=== PATIENT | female | born 1960 | race Caucasian/White ===

== ENCOUNTER 2019-10-05 09:47 | Outpatient (CLI) | payer OTHER, SELFPAY ==
--- NOTE | ~2019-10-05 | XR_ITS ---
EXAMINATION: XR knee LT min 4V DATE: 10/05/2019 10:10 INDICATION: Left knee pain. TECHNIQUE: 4 views of left knee were obtained. COMPARISON: None. FINDINGS: Bone alignment is normal. No fracture. There is mild tricompartmental osteoarthritis. There is a small knee joint effusion. IMPRESSION: 1. Mild left knee osteoarthritis. 2. Small left knee joint effusion. Reviewed, dictated and finalized at location A.
== END 2019-10-05 09:48 | disposition home or self-care (01) ==
PROVIDERS: PCP Internal Medicine; Visit Provider Internal Medicine
DX: M17.12 Unilateral primary osteoarthritis, left knee (principal); M25.462 Effusion, left knee
CPT/HCPCS: 73564

== ENCOUNTER 2019-10-15 09:36 | Outpatient (CLI) | payer OTHER, SELFPAY ==
--- NOTE | ~2019-10-15 | MM_ITS ---
EXAMINATION: MM screening beto BI w gianfranco HISTORY: Screening mammogram TECHNIQUE: Craniocaudal and mediolateral oblique 3-D tomosynthesis images were obtained and synthetic 2-D images were generated. CAD analysis was submitted and interpreted. COMPARISON: Comparison to multiple prior studies sequentially, with oldest reviewed study dated 10/29. BREAST PARENCHYMAL COMPOSITION: The breasts are almost entirely fatty. FINDINGS: There is no evidence of suspicious mass, calcification, or architectural distortion to sugg est malignancy in either breast. There has been no suspicious interval change. IMPRESSION: 1. No mammographic evidence of malignancy. 2. Recommend routine screening mammography in one year. BI-RADS Category 1: Negative Reviewed, dictated and finalized at location A.
== END 2019-10-15 09:37 | disposition home or self-care (01) ==
LOC: ANHIMG 09:40
PROVIDERS: PCP Internal Medicine; Visit Provider Obstetrics & Gynecology
DX: Z12.31 Encounter for screening mammogram for malignant neoplasm of breast (principal)
CPT/HCPCS: 77063; 77067

== ENCOUNTER 2022-12-06 11:49 | Outpatient (CLI) | payer BC, SELFPAY ==
--- NOTE | ~2022-12-06 | MM_ITS ---
EXAMINATION: MM screening beto BI w gianfranco HISTORY: Screening mammogram TECHNIQUE: Craniocaudal and mediolateral oblique 3-D tomosynthesis images were obtained and synthetic 2-D images were generated. CAD analysis was submitted and interpreted. COMPARISON: 10/15/2019, 03/26/2017 bilateral screening mammogram examinations BREAST PARENCHYMAL COMPOSITION: The breasts are almost entirely fatty. FINDINGS: There is no evidence of suspicious mass, calcification, or architectural distortion to sugg est malignancy in either breast. There has been no suspicious interval change. IMPRESSION: 1. No mammographic evidence of malignancy. 2. Recommend routine screening mammography in one year. BI-RADS Category 1: Negative Reviewed, dictated and finalized at location A.
== END 2022-12-06 11:50 | disposition home or self-care (01) ==
LOC: ANHIMG 11:52
PROVIDERS: PCP Internal Medicine; Visit Provider Obstetrics & Gynecology
DX: Z12.31 Encounter for screening mammogram for malignant neoplasm of breast (principal)
CPT/HCPCS: 77063; 77067

== ENCOUNTER 2023-02-11 10:29 | Outpatient (CLI) | payer BC, SELFPAY ==
--- NOTE | ~2023-02-11 | MR_ITS ---
MRI of the lumbar spine Clinical History: Back pain Technique: Axial T2-weighted images, and sagittal T1-weighted, T2-weighted, and T2 fat-sat images wer e acquired. Findings: No acute fracture seen. There is 3 mm retrolisthesis of L1 over L2. There is 2 mm retrolist hesis of L2 over L3. There are reactive marrow signal changes about the T12-L1 disc space due to unde rlying degenerative disc disease. At L1-L2, there is severe degenerative disc narrowing. There is minimal disc bulge with mild to moder ate facet arthropathy. No central canal stenosis. There is mild to moderate bilateral neural foramina l narrowing. At L2-L3, there is advanced degenerative disc narrowing. There is minimal disc bulge with moderate fa cet arthropathy. No central canal stenosis or definite neural foraminal narrowing. At L3-L4, there is diffuse disc bulge with moderate facet arthropathy. No dangelo central canal stenosi s. There is minimal bilateral neural foraminal narrowing. At L4-L5, there is diffuse disc bulge with severe facet arthropathy, resulting in severe spinal canal stenosis/thecal sac compression. There is moderate to severe right neural foraminal narrowing, and m ild left neural foraminal narrowing. At L5-S1, there is diffuse disc bulge with moderate facet arthropathy. There is probable mild central canal stenosis. There is advanced bilateral neural foraminal narrowing, left worse than right. Paravertebral soft tissues are unremarkable. Impression: Severe degenerative spondylosis at L4-L5, as detailed above. [id number] degenerative spondylosis involving the remainder of the lumbar spine. 3 mm retrolisthesis of L1 over L2. 2 mm retrolisthesis of L2 over L3. Reviewed, dictated and finalized at [facility]. Impression: Severe degenerative spondylosis at L4-L5, as detailed above. [id number] degenerative spondylosis involving the remainder of the lumbar spine. 3 mm retrolisthesis of L1 over L2. 2 mm retrolisthesis of L2 over L3.
--- NOTE | ~2023-02-11 | XR_ITS ---
EXAMINATION: XR thoracic spine 2V DATE: 02/11/2023 11:44 INDICATION: Back pain, thoracic spine. TECHNIQUE: 3 views of thoracic spine were obtained. COMPARISON: None. FINDINGS: There is 3 degrees dextrocurvature of thoracic spine. There is 3 mm retrolisthesis of T12 o n L1. There is mild chronic anterior wedging of T11 and T12 vertebral bodies. There is moderate to se verely decreased disc height at multiple levels in mid and lower thoracic spine. There are endplate o steophytes at most levels. IMPRESSION: 1. Severe thoracic spondylosis. Reviewed, dictated and finalized at location E.
== END 2023-02-11 10:30 ==
LOC: MICIMG 10:30
PROVIDERS: PCP Internal Medicine; Visit Provider Nurse Practitioner Family
DX: M43.04 Spondylolysis, thoracic region (principal); M43.06 Spondylolysis, lumbar region; M51.36 Other intervertebral disc degeneration, lumbar region; M54.59 Other low back pain
CPT/HCPCS: 72070; 72148

== ENCOUNTER 2024-08-01 10:44 | Outpatient (CLI) | payer MEDICARE, SELFPAY ==
--- NOTE | ~2024-08-01 | MR_ITS ---
MRI of the right shoulder Technique: Axial proton-density fat-sat images, coronal proton density fat-sat and T2 fat-sat images, and sagittal T1-weighted and T2 fat-sat images were acquired. Clinical History: Pain Findings: There is mild to moderate AC joint degenerative change. Coracoclavicular, coracoacromial, a nd coracohumeral ligaments appear intact. There is severe supraspinatus and infraspinatus tendinosis. Probable focal full-thickness tearing at the anterior, distal supraspinatus tendon insertion with tear measuring approximately 1.2 x 1.2 cm in extent. Subscapularis tendon is intact with mild tendinosis. Tendon of long head of the biceps is in tact. No definite labral tear identified. There is inferior glenohumeral head osteophyte with moderate chondromalacia of the superior humeral h ead. Inferior glenohumeral ligament is intact. There is glenohumeral joint effusion with fluid passin g through the rotator cuff defect into the subacromial/subdeltoid bursa. There is additional fluid di stention of the biceps tendon sheath. There is cystic enthesopathic change at the greater tuberosity of the humerus. No muscle atrophy or edema evident. Impression: 1.2 x 1.2 cm area of full-thickness tear at the anterior, distal supraspinatus tendon insertion. Back ground moderate to severe rotator cuff tendinosis. Moderate glenohumeral joint degenerative change and mild to moderate AC joint degenerative change. Reviewed, dictated and finalized at [facility]. Impression: 1.2 x 1.2 cm area of full-thickness tear at the anterior, distal supraspinatus tendon insertion. Background moderate to severe rotator cuff tendinosis. Moderate glenohumeral joint degenerative change and mild to moderate AC joint d egenerative change.
--- OUTSIDE RECORDS SUMMARY | 2024-08-01 12:07 | XMS_ITS | CONTINUITY OF CARE DOCUMENT ---
Author Name [email or web address] Address Unknown Organization [facility] Address [address] [place] [address] Phone [phone] Care Team Providers Care Hearing Instrument Specialist Name Role Phone Agusto SWENSON, Lanette Unavailable Lanette Liz MD Unavailable Albin Suero MD Unavailable INSURANCE PROVIDERS Payer name Policy type / Coverage type [employer] party ID [facility] [id number] Other [id number]
--- OUTSIDE RECORDS SUMMARY | 2024-08-01 12:08 | XMS_ITS | Continuity of Care Document ---
Author Organization [facility] Address [address] [place] [address] [place] [address] Phone Care Team Providers Care Game Warden Name Role Phone Brad Neal MD Unavailable Unavailable Advance Directives Directive Yes / No Effective Date File Name No Information Encounters Encounter Description Practice Location Reason(s) For Visit Diagnoses Date Provider Providers Copied on Encounter [facility], [address] [place], [place], [id number], [place] tel:[phone] [facility] No Information Ángel Salinas. [address] [place], [place], [id number], [place]. tel:[phone] Family History Family Member Type Diagnosis Age At Onset No Information Payers Payer name Insurance type Covered libertarian ID Authoriza tion(s) No Information Social History [...]
--- OUTSIDE RECORDS SUMMARY | 2024-08-01 12:08 | XMS_ITS | Data Portability ---
Author Organization [place] [facility], Main Office Address [address] [place] [address] Assessment Encounter Date Assessment Date Assessment LastModified by Organization Details LastModified Time 12/04/2022 12/04/2022 HPI: Patient returns. She is here for 2 reasons. First reason is she is 1 year out from right total knee arthroplasty. She is extremely happy with her knee replacement. She is having no complaints or problems with the right knee. the other reason she is here today is because her left knee has been bothering her more. She gets pain over the medial aspect of the knee particularly more at night. This has been a little bit more bothersome in the last several months. She is taking no anti-inflammatori es at this point. Physical exam: 62-year-old female she is 5 ft 2 and 198 lb or BMI is 36.2. Her right knee she has no effusion. Well-healed incision. Range of motion is from 0-135 degrees. Excellent stability in both flexion extension. Left knee she has a very mild effusion. Range of motion is from 3-135 degrees. Mild tenderness over the medial joint line palpation. No pain on patellofemoral grind and no tenderness to lateral joint line. There is no increased swelling in either lower extremity. She walks relatively well without limp or assistance. Impression: Patient's right total knee arthroplasty is 1 year out. She has excellent range of motion and stability and is very happy with her knee replacement. She has moderate osteoarthritis in medial compartment the left knee. She is having some symptoms at this point. Her arthritis is not severe and she is not at the point where she would need total knee arthroplasty. We talked about nonsurgical treatment including weight loss which she is going to start working hard at this point. Talked about using anti-inflammatori es and she is going to start with sgve-[id number] naproxen twice a day to see if this improves her symptoms. She initially was thinking about having a cortisone injection today but is going to wait until her symptoms are worse. There is possibility once she gets on the naproxen she may have minimal symptoms. She asked about exercise activities and advised her that walking for exercise would only add to the pain in the knee. She asked about aquatic therapy and her exercising which would be better suited for her situation in she is going to start doing this. We also talked about caloric intake which is going to be the most important thing with her weight loss is decreasing the amount of calories she is taking in on a daily basis as this is going to help with her weight loss more than anything. Her knee replacements doing well can see her back in 5 years for routine x-ray surveillance for that. She will call when she feels she needs an injection left knee. 20 minutes was spent treatment patient more than half of this in [id number] conversation bryan Not available 12/04/2022 15:09:37 Plan of Treatment Reminders Order Date Submit Date Provider Last Modified By Organization Details Last Modified Time Details Appointments None recorded. Lab CMP, serum or plasma 2023 024 [facility], [address] [place], [address], 4 20:45:30 lipid panel, serum 2023 024 [facility], [address] [place], [address], 4 20:45:35 vitamin D, 25-hydroxy, total, serum 2023 024 [email or web address] [facility], [address] [place], [address], 4 08:21:54 vitamin D, 25-hydroxy, total, serum 2022 023 [facility], [address] [place], [address], 3 00:59:24 CMP, serum or plasma 2022 023 [facility], [address] [place], [address], 3 19:41:45 lipid panel, serum 2022 023 [facility], [address] [place], [address], 3 19:41:50 Referral None recorded. Procedures colonoscopy screening (PROC) - Please call patient to schedule. 2023 024 [email or web address] Jasbir Kessler MD, [address] [facility], [facility] [address], [address], 5 10:15:45 Surgeries None recorded. Imaging MAMMO, screening, digital, bilateral [address] (Mammography) , [address], [place], [address], 4 15:01:38 polysomnogr am, titration study - Please call patient to schedule. [address] [facility] [address] [facility], [address] [place], [address], 4 15:01:38 bone density [address] ([facility]), [address] [place], [address], 4 14:54:03 XR, knee 2022 023 [email or web address] [facility], [facility] [place], [address], 3 17:52:40 Medication Orders omeprazole 40 mg capsule,del ayed release 2022 023 ah[id number], [address], [place], [place], [id number], 3 17:19:15 hydrochloro thiazide 25 mg tablet [address] [facility]49, [address], [place], [place], [id number], 3 17:19:15 losartan 100 mg tablet [address] [facility][id number], [address], [place], [place], [id number], 3 17:19:15 duloxetine 20 mg capsule,del ayed release [address] [facility]81072, [address], [place], [place], [id number], 3 17:19:15 rosuvastati n 40 mg tablet [address] [facility]25197, [address], [place], [place], [id number], 3 17:19:15 Patient TargetsNo targets recorded. Patient Instructions Encounter Date Encounter Id Patient Instructions Last Modified By Organization Details Last Modified Time 03/07/2024 [id number] dementia rating scale-2* Not available 03/08/2024 11:10:25 depression screening* Not available 03/08/2024 11:10:25 alcohol misuse* Not available 03/08/2024 11:10:25 multi-dimensiona l health assessment questionnaire* Not available 03/08/2024 11:10:25 advance directiv es: care instructions Not available 03/08/2024 11:10:25 [place] Advance Directives Not available 03/08/2024 11:10:25 advance care planning: care instructions Not available 03/08/2024 11:10:25 Personalized a lt Plan and Screening Recommendations Advance Directives - Do you have one? No You have indicated that you are capable of preparing your advance care directive Advance Directives - Do we have your advance directive on file in your health record? No, please bring in a copy at your earliest convenience Primary Prevention/Interven tion (prevents or decreases the chance of common diseases from occurring) Smoking Risk: Non Smoker Alcohol Misuse Screening: Negative Weight: Appropriate Overwei ght continue your current weight loss efforts try to lose 5% of your body weight try to lose 10% of your body weight try to lose 15% of your body weight Physical activity: Need more exercise/physical activity minimum of 10-20 minutes of activity that causes mild breathlessness/day Nutrition: Good Average Refer to attached handout Heart-Healthy Diet: After Your Visit Fall Risk (screened today): Low Intermediate Vaccines Pneumococcal: Influenza: Chronic Disease Risks Stroke: Low Risk Intermediate Risk I have no recommendations Act alysha diagnosis, Continue current treatment plan Heart Attack: Low risk Intermediate Risk I have no recommendations Act alysha diagnosis, Continue current treatment plan Clogging of the Arteries: Low risk Intermediate Risk I have no recommendations Act alysha diagnosis, Continue current treatment plan Diabetes: Low Risk I have no recommendations Secondary Prevention/Interven tion (detects treatable diseases before they may cause symptoms, disability, or ) Breast Cancer Screening with mammogram: Your next mammogram: Ordered Cervical/Uterine/Ov mayra Cancer Screening: Osteoporosis Screening: Your next DEXA in: Ordered Date Screening Last Performed: Colon Cancer Screening: Colonoscopy In: Ordered Date Screening Last Performed: Eye Disease Screening: Ordered Recommended today Dementia Risk: Low I have no recommendations Depression Screening: Negative Active diagnosis, Continue current treatment plan [email or web address] Not available 03/07/2024 13:19:29 Reason for Referral None Reported. Results Created Date Observation Date Name Description Value Unit Range Abnormal Flag Note LastModifiedBy Organization Detail LastModifiedTime 03/17/2003/17/2023 COMPR EHENS ALYSHA METAB OLIC PANEL sodium 139 mmol/ L 137-14 5 Not Available [facility] (Lab) [address] [place], [address], 03/17/2023 19:41:45 03/17/2003/1703/17/2023 COMPR EHENS ALYSHA METAB OLIC PANEL potassium 4.6 mmol/ L 3.5-5. 1 Not Available [facility] (Lab) [address] [place], [address], 03/17/2023 19:41:45 03/17/20 23 03/17/2023 COMPR EHENS ALYSHA METAB OLIC PANEL chloride 100 mmol/ L 98-107 Not Available [facility] (Lab) [address] [place], [address], 03/17/2023 19:41:45 03/17/20 23 03/17/2023 COMPR EHENS ALYSHA METAB OLIC PANEL carbon dioxide 29 mmol/ L 22-30 Not Available [facility] (Lab) [address] [place], [address], 03/17/2023 19:41:45 03/17/20 23 03/17/2023 COMPR EHENS ALYSHA METAB OLIC PANEL anion gap 14.6 mmol/ L 14-22 Not Available [facility] (Lab) [address] [place], [address], 03/17/2023 19:41:45 03/17/20 23 03/17/2023 COMPR EHENS ALYSHA METAB OLIC PANEL glucose 107 mg/dL 70-99 high Not Available [facility] (Lab) [address] [place], [address], 03/17/2023 19:41:45 03/17/20 23 03/17/2023 COMPR EHENS ALYSHA METAB OLIC PANEL BUN 12 mg/dL 8-19 Not Available [facility] (Lab) [address] [place], [address], 03/17/2023 19:41:45 03/17/20 23 03/17/2023 COMPR EHENS ALYSHA METAB OLIC PANEL creatinine 0.66 mg/dL 0.66-1 .25 Not Available [facility] (Lab) [address] [place], [address], 03/17/2023 19:41:45 03/17/20 23 03/17/2023 COMPR EHENS ALYSHA METAB OLIC PANEL GFR >60 Refer ence Range : [place] ge GFR Healt hy Adult : >60 mL/mi n/1.7 3 m2 Chron ic Kidne y Disea se: 15-60 mL/mi n/1.7 3 m2 Kidne y Failu re: <15/m L/min /1.73 m2 www.n iddk. nih.g ov The MDRD study equat ion has not been valid ated in child johnathon <18 years of age; pregn ant women ; the elder ly >85 years of age; or in some racia l or ethni c subgr oups, such as Hisragini nics. Outsi de the valid ated ana eters , estim ated GFR is less accur ate, requi ring clini paula judgm ent on a case- by-ca se basis . Clini paula inter preta tion for other races and ages must be made by the clini khari. The MDRD study equat ion has not been valid ated for the evalu ation of serum creat inine relat ed to nutri corina l statu s or medic ation usage . For perso ns <18 years of age, a pedia tric GFR calcu lator is avail able on the [facility] websi te: https ://eliana w.francisco javier hannah.o rg/pr ofess ional s/kdo qi/gf r_cal culat or Not Available [facility] (Lab) [address] [place], [address], 03/17/2023 19:41:45 03/17/20 23 03/17/2023 COMPR EHENS ALYSHA METAB OLIC PANEL alkaline phosphatase 79 U/L 38-126 Not Available [facility] (Lab) [address] [place], [address], 03/17/2023 19:41:45 03/17/20 23 03/17/2023 COMPR EHENS ALYSHA METAB OLIC PANEL alanine aminotransfe rase 13 U/L 0-35 Not Available [facility] (Lab) [address] [place], [address], 03/17/2023 19:41:45 03/17/20 23 03/17/2023 COMPR EHENS ALYSHA METAB OLIC PANEL aspartate aminotransfe rase 29 U/L 15-37 Not Available [facility] (Lab) [address] [place], [address], 03/17/2023 19:41:45 03/17/20 23 03/17/2023 COMPR EHENS ALYSHA METAB OLIC PANEL bilirubin, total 0.20 mg/dL 0.20-1 .30 Not Available [facility] (Lab) [address] [place], [address], 03/17/2023 19:41:45 03/17/20 23 03/17/2023 COMPR EHENS ALYHSA METAB OLIC PANEL calcium 9.4 mg/dL 8.4-10 .2 Not Available [facility] (Lab) [address] [place], [address], 03/17/2023 19:41:45 03/17/20 23 03/17/2023 COMPR EHENS ALYSHA METAB OLIC PANEL total protein 7.2 g/dL 6.3-8. 2 Not Available [facility] (Lab) [address] [place], [address], 03/17/2023 19:41:45 03/17/20 23 03/17/2023 COMPR EHENS ALYSHA METAB OLIC PANEL albumin 3.9 g/dL 3.0-4. 4 Not Available [facility] (Lab) [address] [place], [address], 03/17/2023 19:41:45 03/17/20 23 03/17/2023 COMPR EHENS ALYSHA METAB OLIC PANEL globulin 3.3 g/dL 2.6-4. 2 Not Available [facility] (Lab) [address] [place], [address], 03/17/2023 19:41:45 03/17/20 23 03/17/2023 COMPR EHENS ALYSHA METAB OLIC PANEL A/G ratio 1.2 ratio 1.0-2. 0 Not Available [facility] (Lab) [address] [place], [address], 03/17/2023 19:41:45 03/17/20 23 03/17/2023 LIPID PANEL cholesterol 155 mg/dL 140-19 9 NIH ABRAN NSUS RECOM MENDA TION FOR LUCY STERO L: ADULT CHILD LOW RISK: <200 <170 BORDE RLINE : <200- 239 ----- HIGH RISK: >240 >200 Not Available [facility] (Lab) [address] [place], [address], 03/17/2023 19:41:50 03/17/20 23 03/17/2023 LIPID PANEL triglyceride s 161 mg/dL 0-150 high NIH ABRAN NSUS REPOR T RECOM MENDA TION FOR TRIGL YCERI ADRIANA: ADULT CHILD LOW RISK: <150 ----- BODER LINE: 150-1 99 ----- HIGH RISK: >200 ----- Not Available [facility] (Lab) [address] [place], [address], 03/17/2023 19:41:50 03/17/20 23 03/17/2023 LIPID PANEL HDL cholesterol 59 mg/dL 40- Not Available [facility] (Lab) [address] [place], [address], 03/17/2023 19:41:50 03/17/20 23 03/17/2023 LIPID PANEL LDL cholesterol, calculated 64 mg/dL 0-130 NIH ABRAN NSUS REPOR T RECOM MENDA TIONS FOR LDL: ADULT CHILD LOW RISK <130 <110 (OPTI MAL LDL) <100 ----- BORDE RLINE : 130-1 59 ----- HIGH RISK: >160 >130 A TRIGL YCERI DE RESUL T >400 INVAL IDATE S THE CALCU LATIO N FOR LDL FRACT IONAT ION - THE LDL RESUL T WILL NOT BE REPOR JUANY. Not Available [facility] (Lab) [address] [place], [address], 03/17/2023 19:41:50 03/17/20 23 03/17/2023 VITAM IN D 25-HY DROXY vd25oh 42.0 NG/mL 30-100 Vitam in D Statu s: Defic ient: <20 ng/mL Insuf ficie nt: 20-29 ng/mL Suffi cient : 30-10 0 ng/mL Not Available [facility] (Lab) [address] [place], [address], 03/17/2023 19:49:16 03/07/20 24 03/07/2024 COMPR EHENS ALYSHA METAB OLIC PANEL sodium 134 mmol/ L 137-14 5 low Not Available [facility] (Lab) [address] [place], [address], 03/07/2024 20:45:30 03/07/20 24 03/07/2024 COMPR EHENS ALYSHA METAB OLIC PANEL potassium 4.0 mmol/ L 3.5-5. 1 Not Available [facility] (Lab) [address] [place], [address], 03/07/2024 20:45:30 03/07/20 24 03/07/2024 COMPR EHENS ALYSHA METAB OLIC PANEL chloride 98 mmol/ L 98-107 Not Available [facility] (Lab) [address] [place], [address], 03/07/2024 20:45:30 03/07/20 24 03/07/2024 COMPR EHENS ALYSHA METAB OLIC PANEL carbon dioxide 29 mmol/ L 22-30 Not Available [facility] (Lab) [address] [place], [address], 03/07/2024 20:45:30 03/07/20 24 03/07/2024 COMPR EHENS ALYSHA METAB OLIC PANEL anion gap 11.0 mmol/ L 14-22 low Not Available [facility] (Lab) [address] [place], [address], 03/07/2024 20:45:30 03/07/20 24 03/07/2024 COMPR EHENS ALYSHA METAB OLIC PANEL glucose 80 mg/dL 70-99 Not Available [facility] (Lab) [address] [place], [address], 03/07/2024 20:45:30 03/07/20 24 03/07/2024 COMPR EHENS ALYSHA METAB OLIC PANEL BUN 16 mg/dL 8-19 Not Available [facility] (Lab) [address] [place], [address], 03/07/2024 20:45:30 03/07/20 24 03/07/2024 COMPR EHENS ALYSHA METAB OLIC PANEL creatinine 0.71 mg/dL 0.66-1 .25 Not Available [facility] (Lab) [address] [place], [address], 03/07/2024 20:45:30 03/07/20 24 03/07/2024 COMPR EHENS ALYSHA METAB OLIC PANEL GFR >60 Refer ence Range : [place] ge GFR Healt hy Adult : >60 mL/mi n/1.7 3 m2 Chron ic Kidne y Disea se: 15-60 mL/mi n/1.7 3 m2 Kidne y Failu re: <15/m L/min /1.73 m2 www.n iddk. nih.g ov The MDRD study equat ion has not been valid ated in child johnathon <18 years of age; pregn ant women ; the elder ly >85 years of age; or in some racia l or ethni c subgr oups, such as Hispa nics. Outsi de the valid ated ana eters , estim ated GFR is less accur ate, requi ring clini paula judgm ent on a case- by-ca se basis . Clini paula inter preta tion for other races and ages must be made by the clini khari. The MDRD study equat ion has not been valid ated for the evalu ation of serum creat inine relat ed to nutri corina l statu s or medic ation usage . For perso ns <18 years of age, a pedia tric GFR calcu lator is avail able on the [facility] websi te: https ://eliana w.kid [place].o rg/pr ofess ional s/kdo qi/gf r_cal culat or Not Available [facility] (Lab) [address] [place], [address], 03/07/2024 20:45:30 03/07/20 24 03/07/2024 COMPR EHENS ALYSHA METAB OLIC PANEL alkaline phosphatase 109 U/L 38-126 Not Available [facility] (Lab) [address] [place], [address], 03/07/2024 20:45:30 03/07/20 24 03/07/2024 COMPR EHENS ALYSHA METAB OLIC PANEL alanine aminotransfe rase 21 U/L 0-35 Not Available [facility] (Lab) [address] [place], [address], 03/07/2024 20:45:30 03/07/20 24 03/07/2024 COMPR EHENS ALYSHA METAB OLIC PANEL aspartate aminotransfe rase 46 U/L 15-37 high Not Available [facility] (Lab) [address] [place], [address], 03/07/2024 20:45:30 03/07/20 24 03/07/2024 COMPR EHENS ALYSHA METAB OLIC PANEL bilirubin, total 0.50 mg/dL 0.20-1 .30 Not Available [facility] (Lab) [address] [place], [address], 03/07/2024 20:45:30 03/07/20 24 03/07/2024 COMPR EHENS ALYSHA METAB OLIC PANEL calcium 9.8 mg/dL 8.4-10 .2 Not Available [facility] (Lab) [address] [place], [address], 03/07/2024 20:45:30 03/07/20 24 03/07/2024 COMPR EHENS ALYSHA METAB OLIC PANEL total protein 7.3 g/dL 6.3-8. 2 Not Available [facility] (Lab) [address] [place], [address], 03/07/2024 20:45:30 03/07/20 24 03/07/2024 COMPR EHENS ALYSHA METAB OLIC PANEL albumin 4.5 g/dL 3.0-4. 4 high Not Available [facility] (Lab) [address] [place], [address], 03/07/2024 20:45:30 03/07/20 24 03/07/2024 COMPR EHENS ALYSHA METAB OLIC PANEL globulin 2.8 g/dL 2.6-4. 2 Not Available [facility] (Lab) [address] [place], [address], 03/07/2024 20:45:30 03/07/20 24 03/07/2024 COMPR EHENS ALYSHA METAB OLIC PANEL A/G ratio 1.6 ratio 1.0-2. 0 Not Available [facility] (Lab) [address] [place], [address], 03/07/2024 20:45:30 03/07/20 24 03/07/2024 LIPID PANEL cholesterol 215 mg/dL 140-19 9 high NIH ABRAN NSUS RECOM MENDA TION FOR LUCY STERO L: ADULT CHILD LOW RISK: <200 <170 BORDE RLINE : <200- 239 ----- HIGH RISK: >240 >200 Not Available [facility] (Lab) [address] [place], [address], 03/07/2024 20:45:35 03/07/20 24 03/07/2024 LIPID PANEL triglyceride s 157 mg/dL 0-150 high NIH ABRAN NSUS REPOR T RECOM MENDA TION FOR TRIGL YCERI ADRIANA: ADULT CHILD LOW RISK: <150 ----- BODER LINE: 150-1 99 ----- HIGH RISK: >200 ----- Not Available [facility] (Lab) [address] [place], [address], 03/07/2024 20:45:35 03/07/20 24 03/07/2024 LIPID PANEL HDL cholesterol 78 mg/dL 40- Not Available [facility] (Lab) [address] [place], [address], 03/07/2024 20:45:35 03/07/20 24 03/07/2024 LIPID PANEL LDL cholesterol, calculated 106 mg/dL 0-130 NIH ABRAN NSUS REPOR T RECOM MENDA TIONS FOR LDL: ADULT CHILD LOW RISK <130 <110 (OPTI MAL LDL) <100 ----- BORDE RLINE : 130-1 59 ----- HIGH RISK: >160 >130 A TRIGL YCERI DE RESUL T >400 INVAL IDATE S THE CALCU LATIO N FOR LDL FRACT IONAT ION - THE LDL RESUL T WILL NOT BE REPOR JUANY. Not Available [facility] (Lab) [address] [place], [address], 03/07/2024 20:45:35 03/07/20 24 03/07/2024 VITAM IN D 25-HY DROXY vd25oh 25.1 NG/mL 30-100 low Vitam in D Statu s: Defic ient: <20 ng/mL Insuf ficie nt: 20-29 ng/mL Suffi cient : 30-10 0 ng/mL Not Available [facility] (Lab) [address] [place], [address], 03/07/2024 21:03:41 08/17/20 23 XR, knee No observ ation record ed. [email or web address] [facility] [address], [place], [address], 12/04/2022 15:05:49 12/09/1912/02/2022 polys omnog jcarlos, diagn ostic , 6 yrs or older No observ ation record ed. BARCODE [facility] [address] [place], [address], 12/08/2022 14:49:12 12/11/19 23 12/06/2022 MAMMO , scree liliam, bilat eral No observ ation record ed. [facility] [address], [place], [address], 12/19/2022 14:42:30 02/13/20 23 02/12/2023 MRI, lumba r spine , w/wo contr ast No observ ation record ed. [facility] Available 2022 09:25:46 06/14/19 25 06/13/2024 XR, shoul brianna, 2 or more view No observ ation record ed. [email or web address] [facility] (Radiology) [address] [place], [address], 06/14/2024 11:47:07 Result 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 Problems Name Problem SNOMED Code Status Onset Date Resolution Date Notes Provider Name and Address Organization Details Recorded Time Arthritis of left knee 23972808212 34173 Active 2020 Not Available [facility] 3 09:30:33 Arthritis of right knee 72330168208 95482 Active 2020 Not Available [facility] 3 09:30:33 Daytime somnolenc e 04845939517 0 Completed 201601/15/2018 Not Available [facility] 3 02:52:13 Pain of right shoulder joint 54443583353 349793 Completed 202112/25/2021 Jennifer Bernard APRN [address] [facility], [address], [address] , [facility] 5 16:20:18 Infection of skin and/or subcutane ous tissue 07377696 Completed 202110/25/2021 Not Available [facility] 3 02:52:13 Open wound, heel 549745902 Completed 202110/14/2023 Kelly reddy, RMA null, [facility] 4 11:54:00 Menopausa l and postmenop ausal disorders 984432776 Completed 201610/29/2020 Not Available [facility] 3 02:52:13 Bronchiti s 27802883 Completed Not Available [facility] 3 02:52:13 Vitamin D deficienc y 64796632 Active Not Available [facility] 3 09:30:33 Depressiv e disorder 04803841 Active Not Available [facility] 3 09:30:33 Secondary hyperlipi demia 565469302 Completed Not Available [facility] 3 02:52:13 Obesity 577581341 Active Not Available [facility] 3 09:30:33 Anxiety 48873749 Active Not Available [facility] 3 09:30:33 Upper respirato ry infection 45655334 Completed Not Available [facility] 3 02:52:14 Acute upper respirato ry infection 19032643 Completed Not Available [facility] 3 02:52:14 Hyperlipi demia 19049113 Active Not Available [facility] 3 09:30:33 Essential hypertens ion 85717427 Active Not Available [facility] 3 09:30:33 Tinea pedis 3291826 Completed 202110/25/2021 Not Available [facility] 3 02:52:14 Diarrhea 88874931 Completed 201710/29/2020 Not Available [facility] 3 02:52:14 Fracture of forearm 26676085 Completed Not Available [facility] 3 02:52:14 Closed fracture of head of radius 95496010 Completed Not Available [facility] 3 02:52:14 Acid reflux 232598378 Active 2021 Not Available [facility] 3 09:30:33 Sleep apnea 46587929 Active 2019 Not Available [facility] 3 09:30:33 Overactiv e urinary bladder 658050056 Active 2021 Not Available [facility] 3 09:30:33 Skin lesion 26061737 Completed 202210/14/2023 Kelly reddy RMA null, [facility] 4 11:53:34 Pain of bilateral knee joints 41427989603 4104 Active 2022 Not Available [facility] 3 09:30:33 Pain of left knee joint [id number] 4107 Completed 202210/14/2023 Kelly reddy RMA null, [place] [facility] 4 11:53:37 Low back pain 073038335 Active 2022 Arlette Plaza MA null, [place] [facility] 3 13:22:38 Osteoarth ritis 099432297 Active 2022 Kelly reddy RMA null, [place] [facility] 4 11:53:39 Hypertrig lyceridem ia 165615791 Active 2022 Albin Suero MD [address] [facility], [address] [address], [place], [address] , [facility] 3 09:06:45 Hyperglyc emia 28628851 Active 2022 Albin Suero MD [address] [facility], [facility] [address], [place], [address] , [facility] 3 09:06:54 COVID-19 049435541 Active 2023 Lyndsey May LPN null, [facility] 4 12:46:17 Gastroeso phageal reflux disease 679892502 Active 2023 Albin Suero MD [address] [facility], [facility] [address], [place], [address] , [facility] 4 12:19:23 Pain of right shoulder joint [id number] 981534 Active 2024 Jennifer Bernard APRN [address] [facility], [facility] [address], [place], [address] , [facility] 5 16:20:18 Shoulder pain 23465815 Active 2024 Pennie Mast MA [facility], [facility] 5 11:47:29 Notes:[facility] diagnostic sleep study 12/02/22 AHI = 31 Medical History: Anxiety/Depression Postnasal drip Obesity with severe OSAHS, AHI = 34, 04/05/20 Obesity with severe OSAHS, AHI = 31, 12/02/22 Hypertension Hyperlipidemia NOMI Urge urinary incontinence Vit D deficiency Thoracic DDD Bilateral knee OA Procedure History: T&A 1969 3 C-sections 1984, 1991, 1998 Colonoscopy 2013 Left wrist fracture repair 2018 Right knee total arthroplasty 2021 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 Procedures Surgical History Date Name Laterality Status Provider Name and Address Organization Details Recorded Time 03/07/20 Medicare Wellness CPT Code, Welcome completed Bhavna Borges RN [facility] [employer] 03/07/2024 12:08:17 03/07/20 24 Advanced Care Planning completed Bhavna Borges RN [facility] [employer] 03/07/2024 13:11:56 Knee Replacement completed Not Available [facility] 06/18/2022 02:45:21 section completed Not Available [facility] 06/18/2022 02:45:21 procedure on hand completed Not Available [facility] 06/18/2022 02:45:21 Imaging Results Imaging Date Name Status LastModified by Organiz ation Details LastModified Time 12/04/2022 XR, knee completed [email or web address] [facility] [place] [address] [facility], [place], [address], 12/04/2022 15:05:49 12/02/2022 polysomnogram, diagnostic, 6 yrs or older completed [facility] [address] [place], [address], 12/08/2022 14:49:12 12/06/2022 MAMMO, screening, bilateral completed [facility] [address], [place], [address], 12/19/2022 14:42:30 02/12/2023 MRI, lumbar spine, w/wo contrast completed [email or web address] Information not available 02/19/2023 09:25:46 06/13/2024 XR, shoulder, 2 or more view completed [email or web address] [facility] (Radiology) [address] [place], [address], 06/14/2024 11:47:07 Procedure 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 Medical Equipment None Reported. Medications Name Sig Start Date Stop Date Status Note LastModified by Organization Details LastModified Time losartan 50 mg tablet TAKE 1 TABLET BY MOUTH DAILY 03/14 completed Not Available Not Available Not Available celecoxib 200 mg capsule TAKE 1 CAPSULE BY MOUTH EVERY DAY 01/13 completed Not Available Not Available Not Available cyclobenz aprine 10 mg tablet Take 1 tablet 3 times a day by oral route. active Not Available Not Available No t Available amoxicill in 500 mg capsule TK 4 CS PO ONE HOUR B EACH APPOINTM ENT 08/27 completed Not Available Not Available Not Available atorvasta tin 40 mg tablet TAKE 1 TABLET BY MOUTH EVERY DAY 01/17 completed Not Available Not Available Not Available prednison e 10 mg tablet TAKE 1 TABLET PO BID active Not Available Not Available No t Available oxybutyni n chloride ER 15 mg tablet,ex tended release 24 hr TAKE 1 TABLET BY MOUTH DAILY 12/04 completed Not Available Not Available Not Available citalopra m 40 mg tablet TAKE 1 TABLET BY MOUTH DAILY active Not Available Not Available No t Available oxybutyni n chloride ER 10 mg tablet,ex tended release 24 hr TAKE 1 TABLET BY MOUTH EVERY DAY 10/29 completed Not Available Not Available Not Available azithromy traci 250 mg tablet Take 2 TABLET EVERY DAY by oral route for 1 day. then 1 tab a day for 4 days 06/02 completed Not Available Not Available Not Available hydrocodo ne 5 mg-acetam inophen 325 mg tablet 04/02 completed Not Available Not Available Not Available Nystop 100,000 unit/gram topical powder APPLY TO THE AFFECTED AREA TWICE DAILY 11/05 completed Not Available Not Available Not Available meloxicam 15 mg tablet TAKE 1 TABLET BY MOUTH EVERY DAY 08/30 completed Not Available Not Available Not Available estradiol -norethin drone acet 1 mg-0.5 mg tablet TAKE 1 TABLET BY MOUTH DAILY 10/13 completed Not Available Not Available Not Available sulfameth oxazole 800 mg-trimet hoprim 160 mg tablet TAKE 1 TABLET BY MOUTH EVERY 12 HOURS 12/12 completed Not Available Not Available Not Available omeprazol e 40 mg capsule,d elayed release TAKE 1 CAPSULE BY MOUTH EVERY DAY 2024 active JOSE 03/07/24 ok to rf 1 x Not Available Not Available Not Available amoxicill in 500 mg tablet TAKE FOUR TS PO 1 HOUR B DAPP 03/16 completed Not Available Not Available Not Available simvastat in 40 mg tablet Take 1 tablet every day by oral route. active Not Available Not Available No t Available prednison e 10 mg tablets in a dose pack Take 1 tab by mouth, 3 times a day for 3 daysTake 1 tab by mouth 2 times a day for 2 daysTake 1 tab by mouth once a day for 1 day 07/29 completed Not Available Not Available Not Available meloxicam 7.5 mg tablet TAKE 1 TABLET BY MOUTH TWICE DAILY 11/23 completed Not Available Not Available Not Available losartan 100 mg-hydroc hlorothia zide 25 mg tablet TAKE 1 TABLET BY MOUTH DAILY 07/07 completed Not Available Not Available Not Available oxycodone -acetamin ophen 5 mg-325 mg tablet 04/02 completed Not Available Not Available Not Available alprazola m 0.5 mg tablet TAKE 1 TABLET BY MOUTH TWICE DAILY NEEDED active Not Available Not Available No t Available methocarb andrez 750 mg tablet TAKE 1 TABLET BY MOUTH TWICE DAILY FOR 7 DAYS NEEDED 03/16 completed Not Available Not Available Not Available Kenalog 10 mg/mL suspensio n for injection In office injectio n administ ered by the provider 11/23 completed [facility]: [id number] 08-07 Not Available Not Available Not Available Xanax 0.25 mg tablet Take 1 tablet every day by oral route as needed. [address]Hulse reddy Not Available Not Available Not Available hydrocodo ne 7.5 mg-acetam inophen 325 mg tablet TAKE 1 TABLET BY MOUTH EVERY 4 HOURS NEEDED FOR PAIN active Not Available Not Available No t Available simvastat in 20 mg tablet TAKE 1 TABLET BY MOUTH DAILY 06/07 completed Not Available Not Available Not Available misoprost ol 200 mcg tablet TAKE 1 TABLET BY MOUTH TWICE DAILY WITH DICLOFEN AC 01/13 completed Not Available Not Available Not Available hydrochlo rothiazid e 12.5 mg capsule active Not Available Not Available Not Available betametha sone, augmented 0.05 % topical ointment APPLY TO LESION ON LEFT THIGH NIGHTLY AND COVER WITH MEDICAL TAPE UNTIL FLAT 10/13 completed Not Available Not Available Not Available diclofena c sodium 75 mg tablet,de layed release TAKE 1 TABLET BY MOUTH TWICE DAILY 01/13 completed Not Available Not Available Not Available hydrochlo rothiazid e 25 mg tablet TAKE 1 TABLET BY MOUTH EVERY DAY 2024 active JOSE 03/07/24 ok to rf 1 x Not Available Not Available Not Available mometason e 0.1 % topical ointment APPLY TO THE AFFECTED AREA ON LEGS DAILY NEEDED 11/05 completed Not Available Not Available Not Available norethind gabby acetate 5 mg tablet TK 1 T PO QD active Not Available Not Available No t Available ergocalci ferol (vitamin D2) 1,250 mcg (50,000 unit) capsule Take 1 capsule every week by oral route for 90 days. 07/29 completed per 03/07/24 lab results / ds Not Available Not Available Not Available lisinopri l 10 mg-hydroc hlorothia zide 12.5 mg tablet Take 1 tablet every day by oral route. active Not Available Not Available No t Available ibuprofen 600 mg tablet 04/02 completed Not Available Not Available Not Available oxycodone -acetamin ophen 7.5 mg-325 mg tablet TAKE 1 TABLET BY MOUTH EVERY 6 HOURS NEEDED 12/12 completed Not Available Not Available Not Available methylpre dnisolone 4 mg tablets in a dose pack take as directed 11/18 completed Not Available Not Available Not Available losartan 100 mg tablet TAKE 1 TABLET BY MOUTH EVERY DAY 2024 active JOSE 03/07/24 ok to rf 1 x Not Available Not Available Not Available fluticaso ne propionat e 50 mcg/actua tion nasal spray,[place] 1 spray every day by intranas al route. 10/04 completed Not Available Not Available Not Available doxycycli ne hyclate 100 mg tablet Take 1 tablet twice a day by oral route. active Not Available Not Available No t Available naproxen 500 mg tablet TAKE 1 TABLET BY MOUTH TWICE DAILY WITH FOOD active Not Available Not Available No t Available amoxicill in 875 mg-potass ium clavulana te 125 mg tablet Take 1 tablet every 12 hours by oral route for 7 days. 07/07 completed Not Available Not Available Not Available oxycodone 5 mg tablet TAKE 1 TABLET PO Q 4HR PRN PAIN active Not Available Not Available No t Available metaxalon e 800 mg tablet TAKE 1 TABLET BY MOUTH THREE TIMES DAILY NEEDED FOR PAIN active Not Available Not Available No t Available rosuvasta tin 40 mg tablet Take 1 tablet every day by oral route for 90 days. 2024 active JOSE 10/14/23 NOV 03/07/24 ok to rf Not Available Not Available Not Available duloxetin e 20 mg capsule,d elayed release TAKE 2 CAPSULES BY MOUTH ONCE DAILY 2024 active JOSE 03/07/24 ok to rf 1 x Not Available Not Available Not Available duloxetin e 60 mg capsule,d elayed release TAKE 1 CAPSULE BY MOUTH EVERY DAY 03/16 completed Not Available Not Available Not Available losartan 100 mg-hydroc hlorothia zide 12.5 mg tablet TAKE 1 TABLET(S ) EVERY DAY BY ORAL ROUTE. active Not Available Not Available No t Available lidocaine (PF) 10 mg/mL (1 %) injection solution In office injectio n administ ered by the provider 11/23 completed [facility]: [id number] 10-04 Not Available Not Available Not Available hydrochlo rothiazid e 12.5 mg tablet Take 1 tablet every day by oral route for 30 days. active Not Available Not Available No t Available Minivelle 0.05 mg/24 hr transderm al patch CALI 1 PATCH TWICE WEEKLY active Not Available Not Available No t Available Eliquis 2.5 mg tablet TAKE 1 TABLET BY MOUTH TWICE DAILY 12/12 completed Not Available Not Available Not Available Stimulant Laxative Plus 8.6 mg-50 mg tablet 12/12 completed Not Available Not Available Not Available Fluarix Quad 6038-5294 (PF) 60 mcg (15 mcg x 4)/0.5 mL IM syringe INJECT 0.5 ML INTRAMUS CULARLY DIRECTED . active Not Available Not Available No t Available duloxetin e 40 mg capsule,d elayed release Take 1 capsule every day by oral route. 09/22 completed Not Available Not Available Not Available Fluvirin 3355-4422 45 mcg (15 mcg x 3)/0.5 mL intramusc ular suspensio n active Not Available Not Available Not Available Gemtesa 03/16 completed Not Available Not Available Not Available Paxlovid 300 mg (150 mg x 2)-100 mg tablets in a dose pack TK 2 NIRMATRE LVIR TS AND 1 RITONAVI R T TOGETHER PO BID FOR 5 DAYS 10/13 completed Not Available Not Available Not Available Vitals Date Recorded Body height Body mass index (BMI) Body weight Provider Name and Address Organization Details Last Updated DateTime 12/04/2022 157.48 cm 36.2 kg/m2 90273.29 g ОЛЕГ Love [facility] 12/04/2022 14:31:10 Date Recorded Body height Body mass index (BMI) Body weight Body temperature Heart rate Oxygen saturation Oxygen saturation in Arterial blood by Pulse oximetry Systolic blood pressure Diastolic blood pressure Provider Name and Address Organization Details Last Updated DateTime 157.48 cm 36.4 kg/m2 24061.8 8 g 98.1 [degF] 105 /min 97 % 97 % 126 mm[Hg] 84 mm[Hg] Nila Meza CMA [facility] 14:33:07 Date Recorded Body height Body mass index (BMI) Body weight Heart rate Oxygen saturation Oxygen saturation in Arterial blood by Pulse oximetry Systolic blood pressure Diastolic blood pressure Provider Name and Address Organization Details Last Updated DateTime 4 157.48 cm 35.6 kg/m2 58261.4 3 g 105 /min 98 % 98 % 130 mm[Hg] 80 mm[Hg] Renée Lieberman Bravo [facility] [employer] [facility] 4 11:50:59 Date Recorded Body height Body mass index (BMI) Body weight Heart rate Oxygen saturation Oxygen saturation in Arterial blood by Pulse oximetry Body temperature Systolic blood pressure Diastolic blood pressure Provider Name and Address Organization Details Last Updated DateTime 4 157.48 cm 35.8 kg/m2 38327.1 g 86 /min 97 % 97 % 97.6 [degF] 158 mm[Hg] 90 mm[Hg] Kelly landa Bravo [facility] [employer] [facility] 4 11:38:52 Date Recorded Pain severity - 0-10 verbal numeric rating [Score] - Reported Provider Name and Address Organization Details Last Updated DateTime 03/07/2024 4 Bhavna Borges RN [facility] [employer] [facility] 03/07/2024 12:55:48 Date Recorded Body height Body mass index (BMI) Body weight Body temperature Heart rate Oxygen saturation Oxygen saturation in Arterial blood by Pulse oximetry Systolic blood pressure Diastolic blood pressure Provider Name and Address Organization Details Last Updated DateTime 5 157.48 cm 36.4 kg/m2 23526.8 8 g 97.7 [degF] 101 /min 98 % 98 % 128 mm[Hg] 78 mm[Hg] Yue valenzuela [facility] [employer] [facility] 5 14:18:24 Social History Question Answer Notes LastModified by Organization Details LastModified Time Tobacco Smoking Status Never Smoker Not Available [facility] 06/18/2022 02:37:19 Do You Have An Advance Directive? No Paperwork Provided 03/07/2024 [email or web address] Information not available 03/07/2024 What Is Your Level Of Alcohol Consumption? Moderate [id number] Information not available 06/18/2022 Are You Blind Or Do You Have Difficulty Seeing? No [email or web address] Information not available 03/07/2024 Is Blood Transfusion Acceptable In An Emergency? Yes [email or web address] Information not available 03/07/2024 What Is Your Level Of Caffeine Consumption? Occasional [email or web address] Information not available 03/07/2024 In The 14 Days Before Symptom Onset, Have You Had Close Contact With A Laboratory-conf irmed COVID-19 While That Case Was Ill? No Not Applicable [email or web address] Information not available 03/07/2024 In The 14 Days Before Symptom Onset, Have You Had Close Contact With A Person Who Is Under Investigation For COVID-19 While That Person Was Ill? No Not Applicable [email or web address] Information not available 03/07/2024 Are You Currently Employed? Yes [email or web address] Information not available 03/07/2024 What Type Of Diet Are You Following? REGULAR [email or web address] Information not available 03/07/2024 Do You Or Have You Ever Used E-cigarettes Or Vape? Never Used Electronic Cigarettes [id number] Information not available 06/18/2022 What Is The Highest Grade Or Level Of School You Have Completed Or The Highest Degree You Have Received? 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 0 [email or web address] Information not available 03/07/2024 Have There Been Any Changes To Your Family Or Social Situation? Yes Father Has Parkinson's (2023) [email or web address] Information not available 03/07/2024 What Is The Fluoride Status Of Your Home? Fluoridated [email or web address] Information not available 03/07/2024 Are There Any Guns Present In Your Home? No [email or web address] Information not available 03/07/2024 Do You Use Insect Repellent Routinely? No [email or web address] Information not available 03/07/2024 Where Do You Live? SingleLevelHouse [email or web address] Information not available 03/07/2024 Do You Have A Medical Power Of Flower Grower? No [email or web address] Information not available 03/07/2024 What Was The Date Of Your Most Recent Tobacco Screening? 03/07/2024 [email or web address] Information not available 03/07/2024 How Many Children Do You Have? 3 [email or web address] Information not available 03/07/2024 Have You Ever Been Counseled For Unhealthy Alcohol Use? No [email or web address] Information not available 03/07/2024 Do You Have Any Pets? Yes [email or web address] Information not available 03/07/2024 What Is Your Relationship Status? [email or web address] Information not available 03/07/2024 Do You Use Your Seat Belt Or Car Seat Routinely? Yes [email or web address] Information not available 03/07/2024 Are You Sexually Active? Yes [email or web address] Information not available 03/07/2024 Do You Have Smoke And Carbon Monoxide Detectors In Your Home? Yes [email or web address] Information not available 03/07/2024 Are You Passively Exposed To Smoke? Yes [email or web address] Information not available 03/07/2024 Do You Or Have You Ever Used Smokeless Tobacco? Never Used Smokeless Tobacco [id number] Information not available 06/18/2022 Are There Any Smokers In Your House? Yes [email or web address] Information not available 03/07/2024 What Types Of Sporting Activities Do You Participate In? None [email or web address] Information not available 03/07/2024 Do You Feel Stressed (tense, Restless, Nervous, Or Anxious, Or Unable To Sleep At Night)? [id number] [email or web address] Information not available 03/07/2024 Do You Use Any Illicit Or Recreational Drugs? No [email or web address] Information not available 03/07/2024 Do You Use Sunscreen Routinely? No [email or web address] Information not available 03/07/2024 Has Tobacco Cessation Counseling Been Provided? No [email or web address] Information not available 03/07/2024 Have You Recently Traveled Abroad? No [email or web address] Information not available 09/24/2022 Do You Have Any Dietary Restrictions? No [email or web address] Information not available 03/07/2024 Do You Or Have You Ever Used Any Other Forms Of Tobacco Or Nicotine? No [email or web address] Information not available 03/07/2024 How Many Days In The Past Year Have You Consumed 4 Or More Drinks? 0 [email or web address] Information not available 03/07/2024 Sex: Unknown Functional Status Question Answer Note LastModified by Organizat ion Details LastModified Time Do you have difficulty walking or climbing stairs? No [email or web address] Information not available 03/07/2024 Are you able to walk? YESWOREST [email or web address] Information not available 03/07/2024 Are you able to care for yourself? Yes [email or web address] Information not available 03/07/2024 Do you have difficulty dressing or bathing? No [email or web address] Information not available 03/07/2024 What is your exercise level? None [email or web address] Information not available 03/07/2024 Mental Status Question Answer Note LastModified by Organization D etails LastModified Time Do you have difficulty concentrating, remembering or making decisions? No [email or web address] Information no t available 03/07/2024 Family History Relationship Description Onset Age of this Age Resolved Age Notes LastModified by Organization Details LastModified Time Mother Family history of malignant neoplasm [id number] Not available 06/18/2022 02:45:24 Father Hypertensive disorder [id number] Not available 06/18/2022 02:45:24 Medical History Condition Response BLINDNESS N KIDNEY STONES N MRSA N CARPAL TUNNEL SYNDROME N LUNG DISEASE/DISORDER N HISTORY OF DRUG ABUSE N COPD N RADIATION / CHEMOTHERAPY N SPORTS INJURY N ANKLE PAIN N BLOOD DISEASES N SCHIZOPHRENIA N SHINGLES N SHOULDER PAIN N DEPRESSION (INCLUDING POST ) N BOWEL PROBLEMS N STROKE/TIA N KNEE PAIN N ULCERS N BENIGN PROSTATIC HYPERPLASIA N OBESITY N GERD/NAUSEA N ANEURYSM N URINARY/BLADDER/KIDNEY PROBLEMS N CORONARY ARTERY DISEASE (CAD) N ADDICTION CONCERNS N USE OF BLOOD THINNERS N SKIN PROBLEMS N EMPHYSEMA N MUSCLE,JOINT OR BONE PROBLEMS N DVT N STOMACH ULCERS N BLOOD CLOTS N USE OF NSAIDS N CONCUSSION OR SPINAL TRAUMA N NEUROPATHY N AIDS/HIV N FRACTURES N HYPERTENSION N ELBOW PAIN N TOURETTE'S N Metal allergy N ANXIETY DISORDER N BLOOD TRANSFUSION N ANEMIA/BLOOD DISORDER N BIPOLAR DISORDER N BRONCHITIS N OSTEOARTHRITIS N TUBERCULOSIS N FOOT PROBLEM N HEART VALVE DISORDERS N ALLERGIES/HAYFEVER N SOFT TISSUE INJURY N INFECTIOUS DISEASE N HEART ARRHYTHMIA N INSOMNIA N HIGH CHOLESTEROL / HYPERLIPIDEMIA N RHEUMATOID ARTHRITIS N EDEMA N CHRONIC PAIN SYNDROME N CAROTID BLOCKAGE N BACK / NECK PROBLEMS N HAVE YOU BEEN HOSPITALIZED OR SEEN IN [facility] IN THE PAST YEAR ? N BURSITIS N HERNIATED DISC N DIALYSIS N FIBROMYALGIA N OSTEOPOROSIS N ARTHRITIS Y NO SIGNIFICANT PAST MEDICAL HISTORY N PERIPHERAL NEUROPATHY N DIABETES, TYPE N HEARTBURN / REFLUX N HEPATITIS / LIVER DISEASE N GOUT N ALZHEIMER'S DISEASE N SLEEP DISORDER N HERPES N HEADACHES/MIGRAINES N SEIZURES/EPILEPSY N VASCULAR DISEASE N Blood Disorder N HIP PAIN N DIZZINESS N HEAD TRAUMA OR INJURY N HEART DISEASE/HEART PROBLEMS N MULTIPLE SCLEROSIS N CARDIAC ARRHYTHMIA N CANCER: SPECIFY N ANESTHESIA COMPLICATIONS N ATRIAL FIBRILLATION N AUTOIMMUNE DISEASE N Gynecological HistoryNo gynecological history recorded. Obstetrics History GPAL:G 0 P 0 0 0 0 Immunizations Vaccine Type Date Status Note Provider Nam e and Address Organization Details Recorded Time Influenza, high-dose, trivalent, PF 1 completed Not Available [facility] 12/08/2022 09:30:34 Influenza, high-dose, trivalent, PF 5 completed Not Available [facility] 12/08/2022 09:30:34 influenza, [id number] 4 completed Not Available [facility] 12/08/2022 09:30:34 Influenza, split virus, quadrivalent, PF 1 completed Not Available [facility] 12/08/2022 09:30:34 Influenza, split virus, quadrivalent, PF 8 completed Not Available [facility] 12/08/2022 09:30:34 Influenza, split virus, quadrivalent, PF 7 completed Not Available [facility] 12/08/2022 09:30:34 Influenza, split virus, quadrivalent, PF 0 completed Not Available [facility] 12/08/2022 09:30:34 Influenza, split virus, quadrivalent, PF 3 completed Albin Suero MD [address], [place], [address], [facility] 03/16/2023 17:18:33 Influenza, high-dose, trivalent, PF 4 completed Albin Suero MD [address], [place], [address], [facility] 03/08/2024 11:11:17 Pneumococcal conjugate PCV20, polysaccharide [id number] conjugate, adjuvant, PF 4 completed ОЛЕГ Rodriguez, [facility] 03/08/2024 11:53:43 Past Encounters Encounter ID Performer Location Encounter Start Date Encounter Closed Date Diagnosis/Indication Diagnosis SNOMED-CT Code Diagnosis ICD10 Code Diagnosis Note [id number] [facility] Internal [facility] [address] [place] [address] 10/29/2020 00:00:00 10/29/2020 11:15:02 [id number] [facility] [address] [address] 11/06/2020 00:00:00 11/06/2020 11:00:45 [id number] [facility] [address] [place] [address] 08/26/2021 00:00:00 08/26/2021 16:04:17 [id number] [facility] [place] [address] [place] [address] 08/30/2021 00:00:00 08/30/2021 10:02:10 [id number] [facility] [address] [address] 09/10/2021 00:00:00 09/10/2021 16:48:22 [id number] [facility] [address] [address] 10/28/2021 00:00:00 10/28/2021 12:55:12 [id number] [facility] [place] [address] [place] [address] 11/05/2021 00:00:00 11/05/2021 15:31:51 [id number] [facility] [place] [address] [place] [address] 11/18/2021 00:00:00 11/18/2021 14:23:49 [id number] [facility] [address] [address] 12/12/2021 00:00:00 12/12/2021 11:36:34 [id number] [facility] [address] [address] 01/13/2022 00:00:00 01/13/2022 15:12:26 [id number] Albin Suero MD [facility] [address] [address] 09/22/2022 09:35:49 09/22/2022 10:08:18 Essential hypertension 16165052 I10 watch Anxiety 94583016 F41.9 stable with meds Depressive disorder 3548 9007 F32.9 Hyperlipidemia 49262972 E78.5 labs next yime Obesity 203424042 E66.9 advised to lose wt Sleep apnea 61774104 G47 .30 needs sleep titration, again discussed, willing Vitamin D deficiency 347 51054 E55.9 ot Adult heal th examination 581970183 Z00.00 Colonoscop y - 10/31, next in 10 yrs, dr Lorena navarrete -a p-fisher dip net - 08/2017Dexa - ne umovax - NEVERFlu - 02/2021 Screening mammography 24 214543 Z12.31 Skin lesion 89944348 L98 .9 Overactive urinary bladder 520987285 N32.81 try Gemtesa 75v mg qd [id number] Juan Antonio Valderrama MD [facility] [place] [id number] [facility] [address] [address] 09/24/2022 10:55:41 09/24/2022 12:06:54 Sleep apnea 60435949 G47.30 G47.33 G47.36 G47.61 [id number] RAGINI Da Silva [facility] [place] [address] 12/04/2022 14:04:32 12/04/2022 15:12:05 History of right total knee replacement 8263278266 228414 Z96.651 Pain of le ft knee joint 3178612993 93557 M25.339 [id number] Albin Suero MD [facility] [address] [place] [address] 03/16/2023 14:12:02 03/16/2023 15:02:50 Essential hypertension 51065330 I10 under control Anxiety 21215234 F41.9 stable with meds Hyperlipidemia 59095066 E78.5 labs Obesity 113127823 E66.9 advised to lose wt Vitamin D deficiency 347 19783 E55.9 ot Adult heal th examination 985402754 Z00.00 Colonoscop y - 10/31, next in 10 yrs, dr GouldMammo gram -8/23Pap-g yn - 08/2017Dexa - 2Pne umovax - NEVERFlu - 02/2021, 02/2023 Sleep apnea 36180789 G47 .30 G47.33 G47.36 G47.61 will get it done once get new insurance Overactive urinary bladder 775680907 N32.81 meds did not help Depressive disorder 3548 9007 F32.9 under control Osteoarthritis 555852615 M19.90 otc Acid reflux 193356943 K2 1.9 Administra tion of influenza vaccine 01413160 Z23 [id number] Albin Suero MD [facility] Internal Med [address] [place] [address] 10/14/2023 11:42:49 10/14/2023 12:24:12 Essential hypertension 79416372 I10 under control Anxiety 11594231 F41.9 UNDER CONTROL Hyperlipidemia 75186359 E78.5 labs good Obesity 057852599 E66.9 advised to lose wt Vitamin D deficiency 347 85255 E55.9 otc Adult heal th examination 117353269 Z00.00 Colonoscop y - 10/31, next in 10 yrs, dr Schmidt (DUE) wants to wait until NOV when she gets on MedicareMa mmogram -8/23Pap-g yn - 4Dex a - 2Pne umovax - NEVERFlu - 02/2021, 02/2023 Sleep apnea 05470254 G47 .30 G47.33 G47.36 G47.61 will get it done once get new insurance Overactive urinary bladder 499078184 N32.81 meds did not help Depressive disorder 3548 9007 F32.9 under control Osteoarthritis 930765383 M19.90 otc Gastroesop hageal reflux disease 128007689 K21.9 meds help [id number] Albin Suero MD [facility] Internal Med [address] [place] [address] 03/07/2024 11:07:59 03/07/2024 12:39:21 Essential hypertension 28003458 I10 was alway under control, watch Anxiety 87541318 F41.9 UNDER CONTROL Hyperlipidemia 23666172 E78.5 labs good Obesity 572689470 E66.9 advised to lose wt Vitamin D deficiency 347 41210 E55.9 otc Adult heal th examination 119751873 Z00.00 Colonoscop y - 10/31, next in 10 yrs, dr Schmidt (DUE)Mammo gram -8/23Pap-g yn - 4Dex a - ne umovax -23 in a yearPrevna r 20 todayFlu - 02/2021, 02/2023, 03/07/2024 Sleep apnea 88208574 G47 .30 G47.33 G47.36 G47.61 needs titration Overactive urinary bladder 766560986 N32.81 meds did not help Depressive disorder 3548 9007 F32.9 under control Osteoarthritis 211825578 M19.90 otc Gastroesop hageal reflux disease 291703637 K21.9 meds help Administra tion of influenza vaccine 51401276 Z23 Screening mammography 24 916134 Z12.31 Postmenopausal state 764 15187 Z78.0 Screening for malignant neoplasm of colon 698482457 Z12.11 Screening for disorder 880859935 Z13.9 Administra tion of pneumococcal vaccine 50974543 Z23 [id number] Albin Suero MD [facility] [address] [place] [address] 07/14/2024 14:02:29 07/14/2024 15:09:12 Health Concerns Section Related Observation LastModified by Organization Detai ls LastModified Time None Recorded Concern Status LastModified by Organization Details LastModified Time None Recorded Advance Directives Directive N: paperwork provided 2023 Payers Encounter Date Sequence Insurance Name Policy Number Policy Krueger Covered Member ID Krueger Member ID Guarantor Name 12/04/2022 1 [place] [id number] Kody Lund [id number] Irish Lund 03/16/2023 1 [place] [id number] Kody Lund [id number] Irish Lund 10/14/2023 1 [facility] (HMO) ILONEX Kody Lund [id number] Irish Lund 03/07/2024 1 [employer] (MEDICARE REPLACEMENT HMO) [id number] Irish Lund [id number] Irish Lund 07/14/2024 1 [employer] (MEDICARE REPLACEMENT HMO) [id number] Irish Lund [id number] Irish Lund Notes Date Note Type Note Provider Name and Address Organization Details Recorded Time 03/16/2023 text/html Pt is here for f/u, taking all meds. Pt is complaining of watery and burning eyes after waking up in the morning. Pt also states that she has been vomiting after getting overheated while at work. HTN- under controlMeds- Losartan 100 mg daily, HCTZ 25 mg daily Hyperlipidemia- labs 01/09, dueMeds- Simvastatin Anxiety and depression -better with meds, mood is betterMeds- Duloxetine 40 mg daily, Alprazolam 0.5 mg as needed Obesity- has not lost Vit D deficiency-- on meds otc Left wrist and elbow fx 01/04, s/p surgery, using a brace some times Overactive bladder- med made her mouth dry so she stopped taking, it did not help, has tried gemtesa, oxybutynin Left and Right knee pain- s/p right TKA , left knee is also hurtingSleep apnea- home sleep study in 04/08, tried titration, could not finish Post menopausal symptoms- on HRT from gyne and feeling better Albin Suero MD [address] [facility], [facility] [address], [place], [address], [place] [facility] [employer] 03/16/2023 17:18:43 10/14/2023 text/html Pt is here for f/u, taking all meds. HTN- under controlMeds- Losartan 100 mg daily, HCTZ 25 mg daily Hyperlipidemia- labs 01/09, dueMeds- Rosuvastatin 40mg daily Anxiety and depression -better with meds, mood is betterMeds- Duloxetine 40 mg daily, Alprazolam 0.5 mg as needed Obesity- has lost 5lbs Vit D deficiency-- on meds otc GERD- On meds and helpsMeds- Omeprazole 40mg daily Left wrist and elbow fx 01/04, s/p surgery, using a brace some times Overactive bladder- med made her mouth dry so she stopped taking, it did not help, has tried gemtesa, oxybutynin Left and Right knee pain- s/p right TKA , left knee is also hurtingSleep apnea- home sleep study in 04/08, tried titration, could not finish Post menopausal symptoms- Was on HRT from gyne Has a pelvic ultrasound ordered not scheduled yet Albin Suero MD [address], [place], [address], [employer] 10/14/2023 12:24:09 03/07/2024 text/html Pt is here for h er 6 month f/u, taking all meds.PT IS FASTING ( [facility] ) HTN- under controlMeds- Losartan 100 mg daily, HCTZ 25 mg daily Hyperlipidemia- labs 01/09, dueMeds- Rosuvastatin 40mg daily Anxiety and depression -better with meds, mood is better, anxiety under control .Meds- Duloxetine 40 mg daily, Alprazolam 0.5 mg as needed Obesity- has gained 2 lbs Vit D deficiency-- on meds otc GERD- On meds and helpsMeds- Omeprazole 40mg daily Left wrist and elbow fx 01/04, s/p surgery, using a brace some times Overactive bladder- med made her mouth dry so she stopped taking, it did not help, has tried gemtesa, oxybutynin Left and Right knee pain- s/p right TKA , left knee is also hurtingSleep apnea- home sleep study in 04/08, tried titration, could not finish, still has symptoms Post menopausal symptoms- Was on HRT from gyne Albin Suero MD [address], [place], [address], [employer] 03/08/2024 11:11:26 07/14/2024 text/html pt not seen Albin Suero MD [address], [place], [address], [employer] 07/14/2024 15:08:49 OBGyn Episode No OBEpisode recorded.
--- OUTSIDE RECORDS SUMMARY | 2024-08-01 12:08 | XMS_ITS | Patient Health Record ---
Author Organization [facility] Address [address] [place] [address] Care Team Providers Care Chef Saucier Name Role Phone Amado Bruno Primary Care Provider [phone] Reason For Referral No Information Immunizations Vaccine Route Administration Date Status Comme nts COVID-19 Moderna 2nd IM Intramuscular 06/21/2020 Administered COVID-19 Moderna 1ST IM Intramuscular 05/24/2020 Administered EUA date 0. Screening reviewed and consent signed. Patient tolerated well. Plan Of Treatment No Information Insurance Providers Payer Name Payer Address Payer Phone Subscriber Number Group Number Insured Name Patient Relationship to Insured Coverage Start Date Coverage End Date [facility] [address] [place] [address] [id number] KevonIrish Self - patient is the insured 1
== END 2024-08-01 10:45 | disposition home or self-care (01) ==
PROVIDERS: PCP Internal Medicine; Visit Provider Physician Assistant Surgical
DX: M75.121 Complete rotator cuff tear or rupture of right shoulder, not specified as traumatic (principal); M75.31 Calcific tendinitis of right shoulder; M19.011 Primary osteoarthritis, right shoulder
CPT/HCPCS: 73221

== ENCOUNTER 2024-10-26 11:15 | Outpatient (RCR) | payer MEDICARE, SELFPAY ==
--- NOTE | 2024-10-03 12:56 | OPREHPOC ---
Outpatient Therapy Plan of Care This is a Multidisciplinary Plan of Care that may contain components documented by all disciplines (PT, OT, and ST.) PT Problem 1 PT Problem #1 Knowledge Deficit PT Goal 1 Goal / Goal Update Burke with HEP Target Visit 4 PT Goal 2 Goal / Goal Update Report no pain greater than 2/10 for 2 consecutive weeks Target Visit 8 PT Problem 2 PT Problem #2 Impaired Range of Motion PT Goal 1 Goal / Goal Update 1. Achieve 170 degrees of active shoulder flexion with R UE 2. Improve R shoulder external rotation to 85 degrees Target Visit 8 PT Problem 3 PT Problem #3 Impaired Strength PT Goal 1 Goal / Goal Update 1. Improve R shoulder flexion strength to 4+/5 to assist with object lifting 2. Improve R shoulder external rotation strength to 4+/5 to improve stability of shoulder for self care Target Visit 8
--- NOTE | 2024-10-03 12:57 | PTOPEVAL1 ---
Assessment and note entered by Jacobo Kaplan, PT Evaluation Information Assessment Status Evaluation Diagnosis Rotator cuff tear of right shoulder, M75.101 ICD-10 Condition Codes (PT) Pain in right shoulder M25.511 Onset 2022 Subjective Information Reports that she has had trouble with shoulder for a couple years. She has done a lot of lifting work and feels that wore on her shoulder. Denies any specific trauma. Reports pain at night localized to her shoulder. She has history of some radiating yanez but after steroid she is not having that pain anymore. She is right handed. Reported Pain Level Pain Score 0: Self Report Assessment PT Clinical Summary Patient presents with signs and symptoms indictive of rotator cuff tear with imaging to confirm. Currently showing a capsular restriction of the shoulder with difficulty in overhead motion and elevation. Patient will benefit from skilled therapy to address these deficits for correction functional strengthening. Emphasis shoulder be placed on mobility with periscapular strengthening . Patient hoping to avoid surgical intervention. Plan of Care Interventions Electrical Stimulation,Hot Pack/Cold Pack,Manual Therapy,Neuro Re-education,Therapeutic Activities, Therapeutic Exercise PT Services Indicated Yes Treatment Frequency and 2x/week for 8 visits Duration These treatments will address the objective and functional deficits as defined above. The patient will be advanced safely and appropriately in order for the patient to progress towards his/her prior level of function. Additional exercises will be introduced and as well as a comprehensive home exercise program upon discharge, if needed, ?to ensure carryover of functional gains achieved in the clinic. This treatment plan has been reviewed and agreement upon by the patient.
--- NOTE | 2024-10-26 11:24 | PCPTNOTE ---
pt arrived 10 minutes late to session today, reports she went to the wrong office building
--- NOTE | 2024-10-31 11:39 | PCPTNOTE ---
Cancelled d/t work schedule, per front office. AKS
--- NOTE | 2024-11-14 11:40 | PCPTNOTE ---
N/S, Called pt to remind her of today's visits and 11-16-24 visit. Left [facility] for her to call and cancel if she no longer requires our services. NABORS
--- NOTE | 2024-11-16 11:48 | PCPTNOTE ---
No call no show, reason unknown. Called and left voice mssg reminding her of today's appt. Pt to call and schedule additional appt if she nees our services. NABORS
--- NOTE | 2025-03-06 13:38 | PCPTNOTE ---
Patient last present for physical therapy on 10/26/24. Patient has not returned and is discharged for therapy at this time. Please refer to last treatment note for discharge status.
== END 2025-01-01 23:59 | disposition home or self-care (01) ==
LOC: ANHPT 11:15
PROVIDERS: PCP Internal Medicine; Visit Provider Orthopaedic Surgery
DX: M75.101 Unspecified rotator cuff tear or rupture of right shoulder, not specified as traumatic (principal); M12.811 Other specific arthropathies, not elsewhere classified, right shoulder
CPT/HCPCS: 97110; 97140; 97161

== ENCOUNTER 2024-12-13 15:20 | Outpatient (CLI) | payer MEDICARE, SELFPAY ==
--- OUTSIDE RECORDS SUMMARY | 2020-02-24 07:11 | XMS_ITS | Continuity of Care Document ---
Author Organization [facility] Address [address] [place] [address] [place] [address] Phone Care Team Providers Care Burglar Alarm Assembler Name Role Phone Brad Neal MD Unavailable Unavailable Advance Directives Directive Yes / No Effective Date File Name No Information Encounters Encounter Description Practice Location Reason(s) For Visit Diagnoses Date Provider Providers Copied on Encounter [facility], [address] [place], [place], [id number], [place] tel:[phone] [facility] No Information Ángel Salinas. [address] [place], [place], [id number], [place]. tel:[phone] Family History Family Member Type Diagnosis Age At Onset No Information Payers Payer name Insurance type Covered democrat ID Authoriza tion(s) No Information Social History Type Description Quantity Date Captured Comments Sex Female Smoking Status No Information Chief Complaint And Reason For Visit No Information Plan Of Treatment Date Type Action Status No Information History Of Present Illness Encounter Date Complaint History Of Prese nt Illness No Information Instructions Date Instruction Additional Infor mation No Information Assessments Type Assessment Date No Information
--- NOTE | ~2024-12-13 | MM_ITS ---
EXAMINATION: MM screening beto BI w gianfranco HISTORY: Screening TECHNIQUE: Craniocaudal and mediolateral oblique 3-D tomosynthesis images were obtained and synthetic 2-D images were generated. CAD analysis was submitted and interpreted. COMPARISON: Comparison to multiple prior studies sequentially, with oldest reviewed study dated 10/13/2013. BREAST PARENCHYMAL COMPOSITION: The breasts are almost entirely fatty. FINDINGS: There is no evidence of suspicious mass, calcification, or architectural distortion to suggest malignancy in either breast. IMPRESSION: 1. No mammographic evidence of malignancy. 2. Recommend routine screening mammography in one year. BI-RADS Category 1: Negative Reviewed, dictated and finalized at location B.
--- OUTSIDE RECORDS SUMMARY | 2024-12-13 15:23 | XMS_ITS | Patient Health Record ---
Author Organization [facility] Address [address] [place] [address] Care Team Providers Care Ring Striker Name Role Phone Amado Bruno Primary Care Provider [phone] Reason For Referral No Information Immunizations Vaccine [...] Insured Coverage Start Date Coverage End Date [facility] [address] [place] [address] [id number] KevonIrish Self - patient is the insured 1
== END 2024-12-13 15:21 | disposition home or self-care (01) ==
LOC: ANHFOHIMG 15:21
PROVIDERS: PCP Internal Medicine; Visit Provider Internal Medicine
DX: Z12.31 Encounter for screening mammogram for malignant neoplasm of breast (principal)
CPT/HCPCS: 77063; 77067

== ENCOUNTER 2025-02-22 01:09 | Day surgery (SDC) | payer MEDICARE, SELFPAY ==
[2025-02-13 09:50] VITALS: BMI 32.6
--- OUTSIDE RECORDS SUMMARY | 2025-02-22 01:12 | XMS_ITS | Patient Health Record ---
Author Organization [facility] Address [address] [place] [address] Care Team Providers Care Mortar Worker Name Role Phone Amado Bruno Primary Care Provider [phone] Reason For Referral No Information Immunizations Vaccine Route Administration Date Status Comme nts COVID-19 Moderna 1ST IM Intramuscular 05/24/2020 Administered EUA date 0. Screening reviewed and consent signed. Patient tolerated well. COVID-19 Moderna 2nd IM Intramuscular 06/21/2020 Administered Plan Of Treatment No Information Insurance Providers Payer Name Payer Address Payer Phone Subscriber Number Group Number Insured Name Patient Relationship to Insured Coverage Start Date Coverage End Date [facility] [address] [place] [address] [id number] KevonIrish Self - patient is the insured 1
--- OUTSIDE RECORDS SUMMARY | 2025-02-22 01:12 | XMS_ITS | Data Portability ---
Author Organization [facility] [email or web address], Main Office Address [address] [place] [address] Assessment No assessment recorded. Plan of Treatment Reminders Order Date Submit Date Provider Last Modified By Organization Details Last Modified Time Details Appointments None recorded . Lab vitamin D, 25-hydro xy, total, serum 2024 025 [facility], [address] [place], [address], 5 04:26:38 lipid panel, serum 2024 025 [facility], [address] [place], [address], 5 04:26:38 HbA1c (hemoglo bin A1c), blood 2024 025 [facility], [address] [place], [address], 5 04:26:38 TSH, serum or plasma 2024 025 [facility], [address] [place], [address], 5 04:26:38 CBC w/ auto diff 2024 025 [facility], [address] [place], [address], 5 04:26:38 CMP, serum or plasma 2024 025 [facility], [address] [place], [address], 5 04:26:38 CMP, serum or plasma 2023 024 [facility], [address] [place], [address], 4 20:45:30 lipid panel, serum 2023 024 [facility], [address] [place], [address], 4 20:45:35 vitamin D, 25-hydro xy, total, serum [email or web address] [place] [address], [address] [place], [address], 4 08:21:54 Referral dermatol ogist referral - Please call patient to schedule an appointm ent. Thank you. 2024 025 [facility], [address] [facility] , [place], [address], 5 13:55:33 pain manageme nt referral - Please call patient to schedule an appointm ent with Dr. Trejo. Thank you. 2024 025 [facility], [address] [facility], [facility] [address], [place], [address], 5 14:09:[address] referral - Please call patient to schedule an appointm ent. Thank you. 2024 025 [email or web address] 2 Kayden Hooks MD, [address], [address], [place], [address], 5 08:50:47 Procedures colonosc opy screenin g (PROC) - Please call patient to schedule . 2023 024 [email or web address] Jasbir Kessler MD, [address] [facility], [address], [place], [address], 5 10:15:45 Surgeries None recorded . Imaging MAMMO, screenin g, digital, bilatera l [address] (Mammography), [address], [place], [address], 4 15:01:38 polysomn ogram, titratio n study - Please call patient to schedule . [address] [facility] [address] [facility], [address] [place], [address], 4 15:01:38 bone density [address] ([employer] [facility]), [address] [place], [address], 4 14:54:03 Medication Orders omeprazo le 40 mg capsule, delayed release 2024 025 [facility] #[id number], [address], [place], [address], 5 12:54:35 rosuvast atin 40 mg tablet 2024 025 [facility] #[id number], [address], [place], [address], 5 12:54:37 hydrochl orothiaz jimbo 25 mg tablet 2024 025 [facility] #[id number], [address], [place], [address], 5 12:54:35 losartan 100 mg tablet 2024 025 [facility] #[id number], [address], [place], [address], 12:54:35 duloxeti ne 20 mg capsule, delayed release 2024 025 [facility] #[id number], [address], [place], [address], 12:54:38 Patient TargetsNo targets recorded. Patient Instructions Encounter Date Encounter Id Patient Instructions Last Modified By Organization Details Last Modified Time 03/07/2024 [id number] dementia rating scale-2* Not available 03/08/2024 11:10:25 depression screening* Not available 03/08/2024 11:10:25 alcohol misuse* Not available 03/08/2024 11:10:25 multi-dimensiona l health assessment questionnaire* Not available 03/08/2024 11:10:25 advance directiv es: care instructions Not available 03/08/2024 11:10:25 [place] Advance Directives Not available 03/08/2024 11:10:25 advance care planning: care instructions Not available 03/08/2024 11:10:25 Personalized a lth Plan and Screening Recommendations Advance Directives - [...] Non Smoker Alcohol Misuse Screening: Negative Weight: Overweight try to lose 15% of your body weight Physical activity: Need more exercise/physical activity minimum of 10-20 minutes of activity that causes mild breathlessness/day Nutrition: Average Refer to attached handout Heart-Healthy Diet: After Your Visit Fall Risk (screened today): Intermediate Vaccines Pneumococcal: Prevnar 20 provided today Influenza: Your next one in the fall of 2024 Chronic Disease Risks Stroke: Intermediate Risk Active diagnosis, Continue current treatment plan Heart Attack: Intermediate Risk Active diagnosis, Continue current treatment plan Clogging of the Arteries: Intermediate Risk Active diagnosis, Continue current treatment plan Diabetes: Low Risk I have no recommendations Secondary Prevention/Interven tion (detects treatable diseases before they may cause symptoms, disability, or ) Breast Cancer Screening with mammogram: Ordered Cervical/Uterine/Ov mayra Cancer Screening: No screening necessary/up to date Osteoporosis Screening: Ordered Date Screening Last Performed: Colon Cancer Screening: Colonoscopy Ordered Date Screening Last Performed: Eye Disease Screening: Recommended today Dementia Risk: Low I have no recommendations Depression Screening: Negative Active diagnosis, Continue current treatment plan [email or web address] Not available 03/07/2024 13:19:29 09/28/2024 [id number] Discussed medication compliance and routine follow up. Discussed healthy diet and routine exercise. Reviewed vaccine records and made recommendations as needed. Encouraged annual eye and dental exams, as well as twice yearly dental cleanings. Will check screening labs as listed below. [email or web address] Not available 09/28/2024 12:46:22 Discussed yearly labs. Discussed healthy diet and weight loss. [email or web address] Not available 09/28/2024 12:53:17 12/26/2024 [id number] [facility]. [email or web address] Not available 12/26/2024 12:11:37 Reason for Referral [place] Referral for Screening for neoplasm Please call patient to schedule an appointment. Thank you. Referring Physician: Laila Dorsey, Internal Medicine, Encounter Date: 09/28/2024 Interior Design Principal Referral for H istory of malignant neoplasm of skin Please call patient to schedule an appointment. Thank you. Referring Physician: Laila Dorsey Internal Medicine, Encounter Date: 12/26/2024 Pain Management Referral for Disorder of skeletal system Please call patient to schedule an appointment with Dr. Trejo. Thank you. Referring Physician: Laila Dorsey, Internal Medicine, Encounter Date: 12/26/2024 Results Created Date Observation Date Name Description Value Unit Range Abnormal Flag Note LastModifiedBy Organization Detail LastModifiedTime 03/07/20 24 03/07/2024 COMPR EHENS ALYSHA METAB OLIC PANEL sodium 134 mmol/ L 137-14 5 low Not Available [facility] (Lab) [address] [place], [address], 03/07/2024 20:45:30 03/07/20 24 03/07/2024 COMPR EHENS ALYSHA METAB OLIC PANEL potassium 4.0 mmol/ L 3.5-5. 1 Not Available [facility] (Lab) [address] [place], [address], 03/07/2024 20:45:30 03/07/20 24 03/07/2024 COMPR EHENS ALYSHA METAB OLIC PANEL chloride 98 mmol/ L 98-107 Not Available [facility] (Lab) [address] [place], [address], 03/07/2024 20:45:30 03/07/20 24 03/07/2024 COMPR EHENS ALYSHA METAB OLIC PANEL carbon dioxide 29 mmol/ L 22-30 Not Available [facility] (Lab) [address] [place], [address], 03/07/2024 20:45:30 03/07/20 24 03/07/2024 COMPR EHENS ALYSHA METAB OLIC PANEL anion gap 11.0 mmol/ L 14-22 low Not Available [facility] (Lab) [address] [place], [address], 03/07/2024 20:45:30 03/07/20 24 03/07/2024 COMPR EHENS ALYSHA METAB OLIC PANEL glucose 80 mg/dL 70-99 Not Available [facility] (Lab) [address] [place], [address], 03/07/2024 20:45:30 03/07/20 24 03/07/2024 COMPR EHENS ALYSHA METAB OLIC PANEL BUN 16 mg/dL 8-19 Not Available [facility] (Lab) [address] [place], [address], 03/07/2024 20:45:30 03/07/20 24 03/07/2024 COMPR EHENS ALYSHA METAB OLIC PANEL creatinine 0.71 mg/dL 0.66-1 .25 Not Available [facility] (Lab) [address] [place], [address], 03/07/2024 20:45:30 03/07/20 24 03/07/2024 COMPR EHENS ALYSHA METAB OLIC PANEL GFR >60 Refer ence Range : [place] GFR Healt hy Adult : >60 [...] or ethni c subgr oups, such as Junior nics. Outsi de the valid ated ana [...] calcu lator is avail able on the [facility] websi te: https :[email or web address] hannah.heaven rg/pr ofess ional s/kdo qi/gf r_cal culat or Not Available [facility] (Lab) [address] [place], [address], 03/07/2024 20:45:30 03/07/20 24 03/07/2024 COMPR EHENS ALYSHA METAB OLIC PANEL alkaline phosphatase 109 U/L 38-126 Not Available [facility] (Lab) [address] [place], [address], 03/07/2024 20:45:30 03/07/20 24 03/07/2024 COMPR EHENS ALYSHA METAB OLIC PANEL alanine aminotransfe rase 21 U/L 0-35 Not Available [facility] (Lab) [address] [place], [address], 03/07/2024 20:45:30 03/07/20 24 03/07/2024 COMPR EHENS ALYSHA METAB OLIC PANEL aspartate aminotransfe rase 46 U/L 15-37 high Not Available [facility] (Lab) [address] [place], [address], 03/07/2024 20:45:30 03/07/20 24 03/07/2024 COMPR EHENS ALYSHA METAB OLIC PANEL bilirubin, total 0.50 mg/dL 0.20-1 .30 Not Available [facility] (Lab) [address] [place], [address], 03/07/2024 20:45:30 03/07/20 24 03/07/2024 COMPR EHENS ALYSHA METAB OLIC PANEL calcium 9.8 mg/dL 8.4-10 .2 Not Available [facility] (Lab) [address] [place], [address], 03/07/2024 20:45:30 03/07/20 24 03/07/2024 COMPR EHENS ALYSHA METAB OLIC PANEL total protein 7.3 g/dL 6.3-8. 2 Not Available [facility] (Lab) [address] [place], [address], 03/07/2024 20:45:30 03/07/20 24 03/07/2024 COMPR EHENS ALYSHA METAB OLIC PANEL albumin 4.5 g/dL 3.0-4. 4 high Not Available [facility] (Lab) [address] [place], [address], 03/07/2024 20:45:30 03/07/20 24 03/07/2024 COMPR EHENS ALYSHA METAB OLIC PANEL globulin 2.8 g/dL 2.6-4. 2 Not Available [facility] (Lab) [address] [place], [address], 03/07/2024 20:45:30 03/07/20 24 03/07/2024 COMPR EHENS ALYSHA METAB OLIC PANEL A/G ratio 1.6 ratio 1.0-2. 0 Not Available [facility] (Lab) [address] [place], [address], 03/07/2024 20:45:30 03/07/20 24 03/07/2024 LIPID PANEL cholesterol 215 mg/dL 140-19 9 high NIH ABRAN NSUS RECOM MENDA TION FOR LUCY STERO L: ADULT CHILD LOW RISK: <200 <170 BORDE RLINE : <200- 239 ----- HIGH RISK: >240 >200 Not Available [facility] (Lab) [address] [place], [address], 03/07/2024 20:45:35 03/07/20 24 03/07/2024 LIPID PANEL triglyceride s 157 mg/dL 0-150 high NIH ABRAN NSUS REPOR T RECOM MENDA TION FOR TRIGL YCERI ADRIANA: ADULT CHILD LOW RISK: <150 ----- BODER LINE: 150-1 99 ----- HIGH RISK: >200 ----- Not Available [facility] (Lab) [address] [place], [address], 03/07/2024 20:45:35 03/07/20 24 03/07/2024 LIPID PANEL HDL cholesterol 78 mg/dL 40- Not Available [facility] (Lab) [address] [place], [address], 03/07/2024 20:45:35 03/07/20 24 03/07/2024 LIPID PANEL [...] WILL NOT BE REPOR JUANY. Not Available [facility] (Lab) [address] [place], [address], 03/07/2024 20:45:35 03/07/20 24 03/07/2024 VITAM IN D 25-HY DROXY [email or web address] 25.1 NG/mL 30-100 low Vitam in D Statu s: Defic ient: <20 ng/mL Insuf ficie nt: 20-29 ng/mL Suffi cient : 30-10 0 ng/mL Not Available [facility] (Lab) [address] [place], [address], 03/07/2024 21:03:41 06/14/19 25 06/13/2024 XR, sea reed, 2 or more view No observ ation record ed. [email or web address] [facility] (Radiology) [address] [place], [address], 06/14/2024 11:47:07 12/16/19 25 12/14/2024 MAMMO , scree liliam, digit al, bilat eral No observ ation record ed. [email or web address] Not Available 11/19 11:44:01 01/10/20 25 01/09/2025 MRI, sea reed, w/wo contr ast No observ ation record ed. [email or web address] Not Available 01/10 14:02:34 Result 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 Problems Name Problem SNOMED Code Status Onset Date Resolution Date Notes Provider Name and Address Organization Details Recorded Time Bronchiti s 77305984 Completed Not Available [facility] 3 02:52:13 Vitamin D deficienc y 89037295 Active Pennie Mast MA null, [place] - [facility] 5 14:16:36 Depressiv e disorder 13956209 Active Not Available [facility] 3 09:30:33 Secondary hyperlipi demia 688835396 Completed Not Available [facility] 3 02:52:13 Obesity 900475637 Active Not Available [facility] 3 09:30:33 Anxiety 95011975 Active Not Available [facility] 3 09:30:33 Upper respirato ry infection 49928852 Completed Not Available [facility] 3 02:52:14 Acute upper respirato ry infection 27236542 Completed Not Available [facility] 3 02:52:14 Hyperlipi demia 68502994 Active Not Available [facility] 3 09:30:33 Essential hypertens ion 40759761 Active Not Available [facility] 3 09:30:33 Fracture of forearm 08315009 Completed Not Available [facility] 3 02:52:14 Closed fracture of head of radius 09229610 Completed Not Available [facility] 3 02:52:14 Daytime somnolenc e 23429960712 0 Completed 201601/15/2018 Not Available [facility] 3 02:52:13 Menopausa l and postmenop ausal disorders 213826604 Completed 201610/29/2020 Not Available [facility] 3 02:52:13 Diarrhea 13745394 Completed 201710/29/2020 Not Available [facility] 3 02:52:14 Sleep apnea 26468655 Active 2019 Not Available [facility] 3 09:30:33 Arthritis of left knee joint 72188307331 03025 Active 2020 Not Available [facility] 3 09:30:33 Arthritis of right knee joint 06795467264 49468 Active 2020 Not Available [facility] 3 09:30:33 Open wound, heel 010705955 Completed 202110/14/2023 Kelly reddy, ОЛЕГ null, [place] - [facility] 4 11:54:00 Infection of skin and/or subcutane ous tissue 54645049 Completed 202110/25/2021 Not Available [facility] 3 02:52:13 Tinea pedis 4504503 Completed 202110/25/2021 Not Available [facility] 3 02:52:14 Acid reflux 428247082 Active 2021 Not Available [facility] 3 09:30:33 Overactiv e urinary bladder 330567328 Active 2021 Not Available [facility] 3 09:30:33 Pain of right shoulder joint 76241578078 927101 Completed 202112/25/2021 Jennifer Bernard APRN [address], [address], [place], [address] , [facility] 5 16:20:18 Skin lesion 06519199 Completed 202210/14/2023 Kelly reddy RMA null, [place] - [facility] 4 11:53:34 Pain of bilateral knee joints 82213796180 4104 Active 2022 Not Available [facility] 3 09:30:33 Pain of left knee joint 87123516840 4107 Completed 202210/14/2023 Kelly reddy RMA null, [place] - [facility] 4 11:53:37 Low back pain 849156283 Active 2022 Arlette Plaza MA null, [place] - [facility] 3 13:22:38 Osteoarth ritis 241576867 Active 2022 Kelly reddy RMA null, [place] - [facility] 4 11:53:39 Hypertrig lyceridem ia 945951483 Active 2022 Albin Suero MD [address], [address], [place], [address] , [facility] 3 09:06:45 Hyperglyc emia 35709121 Active 2022 Albin Suero MD [address], [address], [place], [address] , [facility] [employer] [facility] [employer] 3 09:06:54 COVID-19 823587679 Active 2023 Lyndsey May LPN null, [facility] 4 12:46:17 Gastroeso phageal reflux disease 743848050 Active 2023 Albin Suero MD [address], [address], [place], [address] , [facility] [employer] [facility] 4 12:19:23 Pain of right shoulder joint 70421914055 359886 Active 2024 Jennifer Bernard APRN [address], [address], [place], [address] , [facility] [employer] [facility] [employer] [facility] 5 16:20:18 Pain of shoulder region 94643039 Active 2024 Pennie Mast MA null, [facility] 5 11:47:29 Disorder of skeletal system 98428609 Active 2024 [employer] [address], [address], [place], [address] , [facility] [employer] [facility] [employer] [facility] 5 11:31:31 Chronic pain of right upper limb 80429221421 869412 Active 2024 [facility] [address], [address], [place], [address] , [facility] [employer] [facility] [employer] [facility] 5 11:31:48 Notes:[facility] diagnostic sleep study 12/02/22 AHI = 31 [...] Right knee total arthroplasty 2021 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 Procedures Surgical History Date Name Laterality Status Provider Name and Address Organization Details Recorded Time 03/07/20 24 Medicare Wellness CPT Code, Welcome completed Bhavna Borges RN [facility] 03/07/2024 12:08:17 03/07/20 24 Advanced Care Planning completed Bhavna Borges RN [facility] 03/07/2024 13:11:56 Knee Replacement completed Not Available [facility] 06/18/2022 02:45:21 section completed Not Available [facility] 06/18/2022 02:45:21 procedure on hand completed Not Available [facility] 06/18/2022 02:45:21 Imaging Results None recorded. Procedure 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 Medical Equipment None Reported. Medications Name Sig Start Date Stop Date Status Note LastModified by Organization Details LastModified Time losartan 50 mg tablet TAKE 1 TABLET BY MOUTH DAILY 03/14 completed Not Available Not Available Not Available celecoxib 200 mg capsule TAKE 1 CAPSULE BY MOUTH DAILY STARTING AFTER LAST DOSE OF METHYLPRE DNISOLINE DOSE PACK'S BEEN TAKEN 09/28 completed Not Available Not Available Not Available cyclobenzap rine 10 mg tablet Take 1 tablet 3 times a day by oral route. active Not Available Not Available No t Available amoxicillin 500 mg capsule TK 4 CS PO ONE HOUR B EACH APPOINTME NT 08/27 completed Not Available Not Available Not Available atorvastati n 40 mg tablet TAKE 1 TABLET BY MOUTH EVERY DAY 01/17 completed Not Available Not Available Not Available prednisone 10 mg tablet TAKE 1 TABLET PO BID active Not Available Not Available No t Available oxybutynin chloride ER 15 mg tablet,exte nded release 24 hr TAKE 1 TABLET BY MOUTH DAILY 12/04 completed Not Available Not Available Not Available citalopram 40 mg tablet TAKE 1 TABLET BY MOUTH DAILY active Not Available Not Available No t Available oxybutynin chloride ER 10 mg tablet,exte nded release 24 hr TAKE 1 TABLET BY MOUTH EVERY DAY 10/29 completed Not Available Not Available Not Available azithromyci n 250 mg tablet Take 2 TABLET EVERY DAY by oral route for 1 day. then 1 tab a day for 4 days 06/02 completed Not Available Not Available Not Available hydrocodone 5 mg-acetamin ophen 325 mg tablet 04/02 completed Not Available Not Available Not Available Nystop 100,000 unit/gram topical powder APPLY TO THE AFFECTED AREA TWICE DAILY 11/05 completed Not Available Not Available Not Available meloxicam 15 mg tablet TAKE 1 TABLET BY MOUTH EVERY DAY 08/30 completed Not Available Not Available Not Available estradiol-n orethindron e acet 1 mg-0.5 mg tablet TAKE 1 TABLET BY MOUTH DAILY 10/13 completed Not Available Not Available Not Available sulfamethox azole 800 mg-trimetho prim 160 mg tablet TAKE 1 TABLET BY MOUTH EVERY 12 HOURS 12/12 completed Not Available Not Available Not Available omeprazole 40 mg capsule,del ayed release TAKE 1 CAPSULE BY MOUTH EVERY DAY active Not Available Not Available No t Available amoxicillin 500 mg tablet TAKE 4 TABLETS BY MOUTH ONE HOUR BEFORE DENTAL PROCEDURE . 09/28 completed Not Available Not Available Not Available simvastatin 40 mg tablet Take 1 tablet every day by oral route. active Not Available Not Available No t Available prednisone 10 mg tablets in a dose pack [...] Available Not Available Not Available losartan 100 mg-hydrochl orothiazide 25 mg tablet TAKE 1 TABLET BY MOUTH DAILY 07/07 completed Not Available Not Available Not Available oxycodone-a cetaminophe n 5 mg-325 mg tablet 04/02 completed Not Available Not Available Not Available alprazolam 0.5 mg tablet TAKE 1 TABLET BY MOUTH TWICE DAILY NEEDED active Not Available Not Available No t Available methocarbam ol 750 mg tablet TAKE 1 TABLET BY MOUTH TWICE DAILY FOR 7 DAYS NEEDED 03/16 completed Not Available Not Available Not Available Kenalog 10 mg/mL suspension for injection In office injection administe red by the provider 11/23 completed ND: 0003- [id number]- 20 Not Available Not Available Not Available Xanax 0.25 mg tablet Take 1 tablet every day by oral route as needed. [address]Hu fr[place] Not Available Not Available Not Available hydrocodone 7.5 mg-acetamin ophen 325 mg tablet TAKE 1 TABLET BY MOUTH EVERY 4 HOURS NEEDED FOR PAIN active Not Available Not Available No t Available simvastatin 20 mg tablet TAKE 1 TABLET BY MOUTH DAILY 06/07 completed Not Available Not Available Not Available misoprostol 200 mcg tablet TAKE 1 TABLET BY MOUTH TWICE DAILY WITH DICLOFENA C 01/13 completed Not Available Not Available Not Available hydrochloro thiazide 12.5 mg capsule active Not Available Not Available Not Available betamethaso ne, augmented 0.05 % topical ointment APPLY TO LESION ON LEFT THIGH NIGHTLY AND COVER WITH MEDICAL TAPE UNTIL FLAT 10/13 completed Not Available Not Available Not Available diclofenac sodium 75 mg tablet,kristian yed release TAKE 1 TABLET BY MOUTH TWICE DAILY 01/13 completed Not Available Not Available Not Available hydrochloro thiazide 25 mg tablet TAKE 1 TABLET BY MOUTH EVERY DAY 2024 active JOSE 09/28- Not Available Not Available Not Available mometasone 0.1 % topical ointment APPLY TO THE AFFECTED AREA ON LEGS DAILY NEEDED 11/05 completed Not Available Not Available Not Available norethindro ne acetate 5 mg tablet TK 1 T PO QD active Not Available Not Available No t Available ergocalcife rol (vitamin D2) 1,250 mcg (50,000 unit) capsule TAKE 1 CAPSULE BY MOUTH ONE TIME PER WEEK FOR 90 DAYS active Not Available Not Available No t Available lisinopril 10 mg-hydrochl orothiazide 12.5 mg tablet Take 1 tablet every day by oral route. active Not Available Not Available No t Available ibuprofen 600 mg tablet 04/02 completed Not Available Not Available Not Available oxycodone-a cetaminophe n 7.5 mg-325 mg tablet TAKE 1 TABLET BY MOUTH EVERY 6 HOURS NEEDED 12/12 completed Not Available Not Available Not Available methylpredn isolone 4 mg tablets in a dose pack TAKE 6 TABLETS ON DAY 1 DIRECTED ON PACKAGE AND DECREASE BY 1 TAB EACH DAY FOR A TOTAL OF 6 DAYS 09/28 completed Not Available Not Available Not Available losartan 100 mg tablet TAKE 1 TABLET BY MOUTH EVERY DAY 2024 active JOSE 09/28- Not Available Not Available Not Available fluticasone propionate 50 mcg/actuati on nasal spray,suspe nsion [place] 1 spray every day by intranasa l route. 10/04 completed Not Available Not Available Not Available doxycycline hyclate 100 mg tablet Take 1 tablet twice a day by oral route. active Not Available Not Available No t Available naproxen 500 mg tablet TAKE 1 TABLET BY MOUTH TWICE DAILY WITH FOOD 09/28 completed Not Available Not Available Not Available amoxicillin 875 mg-stacieu m clavulanate 125 mg tablet Take 1 tablet every 12 hours by oral route for 7 days. 07/07 completed Not Available Not Available Not Available oxycodone 5 mg tablet TAKE 1 TABLET PO Q 4HR PRN PAIN active Not Available Not Available No t Available metaxalone 800 mg tablet TAKE 1 TABLET BY MOUTH THREE TIMES DAILY NEEDED FOR PAIN 12/26 completed Not Available Not Available Not Available rosuvastati n 40 mg tablet Take 1 tablet every day by oral route for 90 days. 2024 active JOSE 09/28- Not Available Not Available Not Available duloxetine 20 mg capsule,del ayed release TAKE 2 CAPSULES BY MOUTH EVERY DAY 2024 active Not Available Not Available Not Avai lable duloxetine 60 mg capsule,del ayed release TAKE 1 CAPSULE BY MOUTH EVERY DAY 03/16 completed Not Available Not Available Not Available losartan 100 mg-hydrochl orothiazide 12.5 mg tablet TAKE 1 TABLET(S) EVERY DAY BY ORAL ROUTE. active Not Available Not Available No t Available lidocaine (PF) 10 mg/mL (1 %) injection solution In office injection administe red by the provider 11/23 completed [facility]: [phone] [phone] [phone] Not Available Not Available Not Available hydrochloro thiazide 12.5 mg tablet Take 1 tablet every day by oral route for 30 days. active Not Available Not Available No t Available Minivelle 0.05 mg/24 hr transdermal patch CALI 1 PATCH TWICE WEEKLY active Not Available Not Available No t Available Eliquis 2.5 mg tablet TAKE 1 TABLET BY MOUTH TWICE DAILY 12/12 completed Not Available Not Available Not Available Stimulant Laxative Plus 8.6 mg-50 mg tablet 12/12 completed Not Available Not Available Not Available Fluarix Quad 4728-6095 (PF) 60 mcg (15 mcg x 4)/0.5 mL IM syringe INJECT 0.5 ML INTRAMUSC ULARLY DIRECTED. active Not Available Not Available No t Available duloxetine 40 mg capsule,del ayed release Take 1 capsule every day by oral route. 09/22 completed Not Available Not Available Not Available Fluvirin 1687-9089 45 mcg (15 mcg x 3)/0.5 mL intramuscul ar suspension active Not Available Not Available N ot Available Gemtesa 03/16 completed Not Available Not Available Not Available Paxlovid 300 mg (150 mg x 2)-100 mg tablets in a dose pack TK 2 NIRMATREL VIR TS AND 1 RITONAVIR T TOGETHER PO BID FOR 5 DAYS 10/13 completed Not Available Not Available Not Available Vitals Date Recorded Body height Body mass index (BMI) Body weight Body temperature Heart rate Oxygen saturation Oxygen saturation in Arterial blood by Pulse oximetry Systolic And Diastolic Provider Name and Address Organization Details Last Updated DateTime 5 157.48 cm 36.4 kg/m2 67476.8 8 g 97.7 [degF] 101 /min 98 % 98 % 128/78 mm[Hg] Yue valenzuela [employer] [facility] [email or web address] 5 14:18:24 Date Recorded Body height Body mass index (BMI) Body weight Body temperature Heart rate Oxygen saturation Oxygen saturation in Arterial blood by Pulse oximetry Systolic And Diastolic Provider Name and Address Organization Details Last Updated DateTime 5 157.48 cm 36 kg/m2 18485.7 g 97.8 [degF] 87 /min 97 % 97 % 130/80 mm[Hg] Yue valenzuela [email or web address] 5 12:00:15 Date Recorded Body height Body mass index (BMI) Body weight Heart rate Oxygen saturation Oxygen saturation in Arterial blood by Pulse oximetry Systolic And Diastolic Provider Name and Address Organization Details Last Updated DateTime 4 157.48 cm 35.6 kg/m2 86391.4 3 g 105 /min 98 % 98 % 130/80 mm[Hg] ОЛЕГ Love [employer] [facility] [employer] [facility] 4 11:50:59 Date Recorded Body height Body mass index (BMI) Body weight Body temperature Heart rate Oxygen saturation Oxygen saturation in Arterial blood by Pulse oximetry Systolic And Diastolic Provider Name and Address Organization Details Last Updated DateTime 5 157.48 cm 36.4 kg/m2 99492.8 8 g 97.6 [degF] 78 /min 97 % 97 % 142/88 mm[Hg] Yue Calderon valenzuela MS [employer] [facility] [employer] 5 11:17:24 Date Recorded Body height Body mass index (BMI) Body weight Heart rate Oxygen saturation Oxygen saturation in Arterial blood by Pulse oximetry Body temperature Systolic And Diastolic Provider Name and Address Organization Details Last Updated DateTime 4 157.48 cm 35.8 kg/m2 42009.1 g 86 /min 97 % 97 % 97.6 [degF] 158/90 mm[Hg] Kelly Dinorah syedaОЛЕГ MS [facility] [employer] 4 11:38:52 Date Recorded Pain severity - 0-10 verbal numeric rating [Score] - Reported Provider Name and Address Organization Details Last Updated DateTime 03/07/2024 4 Bhavna Borges RN [facility] [employer] [facility] 03/07/2024 12:55:48 Social History Question Answer Notes LastModified by Organization Details LastModified Time Tobacco Smoking Status Never Smoker Not Available [facility] 06/18/2022 02:37:19 Do You Have An Advance Directive? No Paperwork Provided 03/07/2024 [email or web address] Information not available 03/07/2024 Are You Blind Or Do You Have Difficulty Seeing? No [email or web address] Information not available 03/07/2024 Is Blood Transfusion Acceptable In An Emergency? Yes [email or web address] Information not available 03/07/2024 What Is Your Level Of Caffeine Consumption? Occasional [email or web address] Information not available 03/07/2024 In The 14 Days Before Symptom Onset, Have You Had Close Contact With A Laboratory-conf irmed COVID-19 While That Case Was Ill? No Not Applicable [email or web address] Information not available 03/07/2024 In The 14 Days Before Symptom Onset, Have You Had Close Contact With A Person Who Is Under Investigation For COVID-19 While That Person Was Ill? No Not Applicable [email or web address] Information not available 03/07/2024 What Type Of Diet Are You Following? REGULAR [email or web address] Information not available 03/07/2024 What Is The Highest Grade Or Level Of School You Have Completed Or The Highest Degree You Have Received? [id number] [email or web address] Information not available 03/07/2024 How Many Days Of Moderate To Strenuous Exercise, Like A Brisk Walk, Did You Do In The Last 7 Days? 0 [email or web address] Information not available 03/07/2024 Have There Been Any Changes To Your Family Or Social Situation? Yes Father Has Parkinson's (2023) [email or web address] Information not available 03/07/2024 What Is The Fluoride Status Of Your Home? Fluoridated [email or web address] Information not available 03/07/2024 Are There Any Guns Present In Your Home? No [email or web address] Information not available 03/07/2024 Do You Use Insect Repellent Routinely? No [email or web address] Information not available 03/07/2024 Where Do You Live? SingleLevelHouse [email or web address] Information not available 03/07/2024 Do You Have A Medical Power Of Rapid Outsole Stitcher? No [email or web address] Information not available 03/07/2024 What Was The Date Of Your Most Recent Tobacco Screening? 03/07/2024 [email or web address] Information not available 03/07/2024 How Many Children Do You Have? 3 [email or web address] Information not available 03/07/2024 Have You Ever Been Counseled For Unhealthy Alcohol Use? No [email or web address] Information not available 03/07/2024 Do You Have Any Pets? Yes [email or web address] Information not available 03/07/2024 What Is Your Relationship Status? [email or web address] Information not available 03/07/2024 Do You Use Your Seat Belt Or Car Seat Routinely? Yes [email or web address] Information not available 03/07/2024 Are You Sexually Active? Yes [email or web address] Information not available 03/07/2024 Do You Have Smoke And Carbon Monoxide Detectors In Your Home? Yes [email or web address] Information not available 03/07/2024 Are You Passively Exposed To Smoke? Yes [email or web address] Information not available 03/07/2024 Are There Any Smokers In Your House? Yes [email or web address] Information not available 03/07/2024 What Types Of Sporting Activities Do You Participate In? None [email or web address] Information not available 03/07/2024 Do You Use Sunscreen Routinely? No [email or web address] Information not available 03/07/2024 Has Tobacco Cessation Counseling Been Provided? No [email or web address] Information not available 03/07/2024 Have You Recently Traveled Abroad? No [email or web address] Information not available 09/24/2022 Do You Have Difficulty Walking Or Climbing Stairs? No [email or web address] Information not available 03/07/2024 Do You Have Any Dietary Restrictions? No [email or web address] Information not available 03/07/2024 How Many Days In The Past Year Have You Consumed 4 Or More Drinks? 0 [email or web address] Information not available 03/07/2024 Sex: Unknown Functional Status Question Answer Note LastModified by [employer] Details LastModified Time Do you use any illicit or recreational drugs? No [email or web address] Information not available 03/07/2024 Do you or have you ever used any other forms of tobacco or nicotine? No [email or web address] Information not available 03/07/2024 What is your level of alcohol consumption? Moderate [id number] Information not available 06/18/2022 Do you or have you ever used smokeless tobacco? Never used smokeless tobacco [id number] Information not available 06/18/2022 Are you currently employed? Yes [email or web address] Information not available 03/07/2024 Are you able to walk independently without assistance or assistive devices? YESWOREST [email or web address] Information not available 03/07/2024 Are you able to care for yourself independently? 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 No [email or web address] Information not available 03/07/2024 Do you or have you ever used e-cigarettes or vape? Never used electronic cigarettes [id number] Information not available 06/18/2022 What is your exercise level? None [email or web address] Information not available 03/07/2024 Mental Status Question Answer Note LastModified by Organizat ion Details LastModified Time Do you feel stressed (tense, restless, nervous, or anxious, or unable to sleep at night)? [id number] [email or web address] Information not available 03/07/2024 Do you have difficulty concentrating, remembering or making decisions? No [email or web address] Information no t available 03/07/2024 Family History Relationship Description Onset Age of this Age Resolved Age Notes LastModified by Organization Details LastModified Time Mother Family history of malignant neoplasm [id number] Not available 06/18/2022 02:45:24 Father Hypertensive disorder [id number] Not available 06/18/2022 02:45:24 Medical History Condition Response BLINDNESS N KIDNEY STONES N MRSA N CARPAL TUNNEL SYNDROME N LUNG DISEASE/DISORDER N HISTORY OF DRUG ABUSE N RADIATION / CHEMOTHERAPY N COPD N SPORTS INJURY N ANKLE PAIN N BLOOD DISEASES N SCHIZOPHRENIA N SHINGLES N SHOULDER PAIN N DEPRESSION (INCLUDING POST ) N BOWEL PROBLEMS N STROKE/TIA N ULCERS N KNEE PAIN N BENIGN PROSTATIC HYPERPLASIA N OBESITY N [...] HAVE YOU BEEN HOSPITALIZED OR SEEN IN [facility] ER IN THE PAST YEAR ? N BURSITIS [...] HEART DISEASE/HEART PROBLEMS N MULTIPLE SCLEROSIS N CANCER: SPECIFY N CARDIAC ARRHYTHMIA N ANESTHESIA COMPLICATIONS N ATRIAL FIBRILLATION N AUTOIMMUNE DISEASE N Gynecological HistoryNo gynecological history recorded. Obstetrics History GPAL:G 0 P 0 0 0 0 Immunizations Vaccine Type Date Status Note Provider Nam e and Address Organization Details Recorded Time Influenza, high-dose, trivalent, PF 1 completed Not Available [facility] 12/08/2022 09:30:34 Influenza, high-dose, trivalent, PF 5 completed Not Available [facility] 12/08/2022 09:30:34 influenza, [id number] 4 completed Not Available [facility] 12/08/2022 09:30:34 Influenza, split virus, quadrivalent, PF 1 completed Not Available [facility] 12/08/2022 09:30:34 Influenza, split virus, quadrivalent, PF 8 completed Not Available [facility] 12/08/2022 09:30:34 Influenza, split virus, quadrivalent, PF 7 completed Not Available [facility] 12/08/2022 09:30:34 Influenza, split virus, quadrivalent, PF 0 completed Not Available [facility] 12/08/2022 09:30:34 Tdap 5 completed MELINDA [facility] [address] [facility], [facility] [address], [place], [address], [facility] [employer] [facility] 09/28/2024 12:13:05 Influenza, split virus, trivalent, preservative 3 completed Not Available [facility] 12/26/2024 11:08:59 COVID-19, mRNA, LNP-S, PF, 100 mcg/0.5mL dose or 50 mcg/0.25mL dose 1 completed Not Available [facility] 12/26/2024 11:08:59 COVID-19, mRNA, LNP-S, PF, 100 mcg/0.5mL dose or 50 mcg/0.25mL dose 1 completed Not Available [facility] 12/26/2024 11:08:59 COVID-19, mRNA, LNP-S, PF, 100 mcg/0.5mL dose or 50 mcg/0.25mL dose 1 completed Not Available [facility] 12/26/2024 11:08:59 zoster recombinant 2 completed Not Available [facility] 12/26/2024 11:08:59 Influenza, split virus, quadrivalent, PF 2 completed Not Available [facility] 12/26/2024 11:08:59 zoster recombinant 3 completed Not Available [facility] 12/26/2024 11:08:59 RSV, bivalent, protein subunit RSVpreF, diluent reconstituted, 0.5 mL, PF 4 completed Not Available [facility] 12/26/2024 11:08:59 Influenza, split virus, quadrivalent, PF 3 completed Albin Suero MD [address], [place], [address], [email or web address] 03/16/2023 17:18:33 Influenza, high-dose, trivalent, PF 4 completed Albin Suero MD [address], [address], [place], [address], [email or web address] 03/08/2024 11:11:17 Pneumococcal conjugate PCV20, polysaccharide QKP092 conjugate, adjuvant, PF 4 completed ОЛЕГ Rodriguez null, [email or web address] 03/08/2024 11:53:43 Past Encounters Encounter ID Performer Location Encounter Start Date Encounter Closed Date Diagnosis/Indication Diagnosis SNOMED-CT Code Diagnosis ICD10 Code Diagnosis IMO Codes Diagnosis Note [id number] Albin Suero MD [facility] Internal Med [facility] [address] [place] [address] 10/29/2020 00:00:00 10/29/2020 11:15:02 [id number] Serg Mascorro MD [facility] [address] [facility] [address] [place] [address] 11/06/2020 00:00:00 11/06/2020 11:00:45 [id number] MD CATALINO [facility] [address] [place] [address] 08/26/2021 00:00:00 08/26/2021 16:04:17 [id number] Sang Browne MD [facility] [address] [facility] [address] [place] [address] 08/30/2021 00:00:00 08/30/2021 10:02:10 [id number] MD CATALINO [facility] [address] [place] [address] 09/10/2021 00:00:00 09/10/2021 16:48:22 [id number] Albin Suero MD [facility] [address] [facility] [place] [address] 10/28/2021 00:00:00 10/28/2021 12:55:12 [id number] Sang Browne MD [facility] [place] [address] [facility] [address] [place] [address] 11/05/2021 00:00:00 11/05/2021 15:31:51 [id number] Sang Browne MD [facility] [place] [address] [facility] [address] [place] [address] 11/18/2021 00:00:00 11/18/2021 14:23:49 [id number] Sang Browne MD [facility] [address] [facility] [place] [address] 12/12/2021 00:00:00 12/12/2021 11:36:34 [id number] Albin Suero MD [facility] Internal [place] [address] [facility] [place] [address] 01/13/2022 00:00:00 01/13/2022 15:12:26 [id number] Albin Suero MD [facility] Internal [place] [address] [facility] 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 - 08/2017Dexa - ne umovax - NEVERFlu - 02/2021 Screening mammography 24 256703 Z12.31 Skin lesion 09728158 L98 .9 Overactive urinary bladder 965718104 N32.81 try Gemtesa 75v mg qd [id number] Juan Antonio Valderrama MD [facility] [address] [place] [address] 09/24/2022 10:55:41 09/24/2022 12:06:54 Sleep apnea 74591067 G47.30 G47.33 G47.36 G47.61 [id number] Sang Browne MD [facility] Ortho [address] [place] [address] 12/04/2022 14:04:32 12/04/2022 15:12:05 History of right total knee replacement 4695036858 341792 Z96.651 Pain of le ft knee joint 8054054122 38918 M25.678 [id number] Albin Suero MD [facility] Internal [address] [facility] [place] [address] 03/16/2023 14:12:02 03/16/2023 15:02:50 Essential hypertension 93236489 I10 under control Anxiety 19054678 F41.9 stable with meds Hyperlipidemia 34635586 E78.5 labs Obesity 412614620 E66.9 advised to lose wt Vitamin D deficiency 347 50205 E55.9 otc Adult heal th examination 016971436 Z00.00 Colonoscop y - 10/31, next in 10 yrs, dr Lorena navarrete -/23Pap-g yn - 08/2017Dexa - ne umovax - NEVERFlu - 02/2021, 02/2023 Sleep apnea 78611765 G47 .30 G47.33 G47.36 G47.61 will get it done once get new insurance Overactive urinary bladder 167764935 N32.81 meds did not help Depressive disorder 3548 9007 F32.9 under control Osteoarthritis 096243810 M19.90 otc Acid reflux 525612064 K2 1.9 Administra tion of influenza vaccine 44420797 Z23 [id number] Albin Suero MD [facility] [address] [place] [address] 10/14/2023 11:42:49 10/14/2023 12:24:12 Essential hypertension 07602857 I10 under control Anxiety 53301234 F41.9 UNDER CONTROL Hyperlipidemia 23863786 E78.5 labs good Obesity 609523566 E66.9 advised to lose wt Vitamin D deficiency 347 41791 E55.9 ot Adult [facility] th examination 438166088 Z00.00 Colonoscop y - 10/31, next in 10 yrs, dr Schmidt (DUE) wants to wait until NOV when she gets on MedicareMa mmogram -8/23Pap-g yn - 4Dex a - ne umovax - NEVERFlu - 02/2021, 02/2023 Sleep apnea 64141337 G47 .30 G47.33 G47.36 G47.61 will get it done once get new insurance Overactive urinary bladder 666311586 N32.81 meds did not help Depressive disorder 3548 9007 F32.9 under control Osteoarthritis 742009502 M19.90 otc Gastroesop hageal reflux disease 551026202 K21.9 meds help [id number] Albin Suero MD [facility] [address] [place] [address] 03/07/2024 11:07:59 03/07/2024 12:39:21 Essential hypertension 01382078 I10 was alway under control, watch Anxiety 54394916 F41.9 UNDER CONTROL Hyperlipidemia 05933633 E78.5 labs good Obesity 750324478 E66.9 advised to lose wt Vitamin D deficiency 347 73021 E55.9 ot Adult [facility] th examination 853621912 Z00.00 Colonoscop y - 14, next in 10 yrs, dr Schmidt (DUE)Mammo gram -8/23Pap-g yn - 4Dex a - 2Pne umovax -23 in a yearPrevna r 20 todayFlu - 02/2021, 02/2023, 03/07/2024 Sleep apnea 51348583 G47 .30 G47.33 G47.36 G47.61 needs titration Overactive urinary bladder 107433450 N32.81 meds did not help Depressive disorder 3548 9007 F32.9 under control Osteoarthritis 252920542 M19.90 otc Gastroesop hageal reflux disease 436886530 K21.9 meds help Administra tion of influenza vaccine 16738528 Z23 Screening mammography 24 734592 Z12.31 Postmenopausal state 764 66977 Z78.0 Screening for malignant neoplasm of colon 768259472 Z12.11 Screening for disorder 166166280 Z13.9 Administra tion of pneumococcal vaccine 21336538 Z23 [id number] Albin Suero MD [facility] Internal Med [facility] [address] [facility] [place] [address] 07/14/2024 14:02:29 07/14/2024 15:09:12 [id number] Albin Suero MD [facility] Internal [place] [address] [facility] [place] [address] 09/28/2024 11:55:27 09/28/2024 12:54:17 Acid reflux 337724035 K21.9 diet and meds helpful Anxiety 38482899 F41.9 under control, denies s/hi Depressive disorder 3548 9007 F32.9 under control, denies s/hi Essential hypertension 74831824 I10 under control, takes medication s Hyperlipidemia 77341916 E78.5 Discussed diet and exercise, working on diet Obesity 259540396 E66.9 discussed weight loss options and routine at home. WIll review labs and patient to continue to eat healthy and exercise. Osteoarthritis 673429028 M19.90 no concerns Overactive urinary bladder 674386581 N32.81 no concerns Sleep apnea 87191343 G47 .30 G47.33 G47.36 G47.61 Needs to have repeated study but wants to wait. Screening for neoplasm 8609434815 Z12.9 [id number] Patient does not want to go to [facility] Screening for cardiovascular system disease 176527654 Z13.6 107272 Long-term current use of drug therapy 555360431 Z79.899 14154516 [id number] Albin Suero MD [facility] Internal Med [facility] [address] [facility] [place] [address] 12/26/2024 11:07:37 12/26/2024 12:24:04 History of malignant neoplasm of skin 779299982 Z85.828 862101 Disorder o f skeletal system 69448558 M89.9 Chronic pa in of right upper limb 1464771722 8859922 M25.511 G89.29 [id number] Unable to receive surgery- needs to see pain management Health Concerns Section Related Observation LastModified by Organization Detai ls LastModified Time None Recorded Concern Status LastModified by Organization Details LastModified Time None Recorded Advance Directives Directive N: paperwork provided 2023 Payers Insurance Date Sequence Insurance Name Policy Number Policy Krueger Covered Member ID Krueegr Member ID Guarantor Name 03/04/2024 1 [facility] (O) ILONEX Kody Frey Lund [id number] Irish Shearer Lund 10/15/2023 1 [place] [id number] Kody Lund [id number] Irish Shearer Lund 12/24/2024 1 [employer] (MEDICARE REPLACEMENT/A DVANTAGE - HMO) [id number] Irish Shearer Lund [id number] [employer] [place] 07/14/2024 1 [facility] [id number] Irish Shearer Lund [id number] [employer] [place] Notes Date Note Type Note Provider Name and Address Organization Details Recorded Time 10/14/2023 text/html Pt is here for f/u, [...] not scheduled yet Albin Suero MD [address], [place], [address], [email or web address] 10/14/2023 12:24:09 03/07/2024 text/html Pt is here for her 6 month f/u, taking all meds.PT IS [...] HRT from gyne Albin Suero MD [address], [place], [address], Clinical Data 03/08/2024 11:11:26 07/14/2024 text/html pt not seen Albin Suero MD [address], [place], [address], Clinical Data 07/14/2024 15:08:49 09/28/2024 text/html Patient is a 64 year old female that presents to the office for annual wellness. patient states she is overall doing well with no concerns at this time. patient denies chest pain, shortness of breath, headache, abdominal pains, or fevers at this time. labs-ordered.mammo gram- augustcolonoscopy- referral sent to [facility]- [facility]- does not check at homeWWE- awareDEXA-aware- wants to wantFlu-yes utdCovid- no boostersTdap-UTD given in june due to MVAShingles-utd at age 49 both dosesPneumo-aware [facility] [address] [facility] [address], [place], [address], [email or web address] 09/28/2024 12:54:57 12/26/2024 text/html ROS as noted in the HPI Patient is 64y/o female who is here to discuss referrals at this time. She reports that she has not had a dermatology yearly scan in a while and is in need of new derm. She also reports she has history of severe right shoulder injury that does not qualify for surgery. She report's that she needs to see pain management at this time. Today in office, she denies chest pain, shortness of breath, fatigue, fevers, or abdominal pains at this time. [facility] [address], [facility] [address], [place], [address], [email or web address] 12/26/2024 12:12:00 OBGyn Episode No OBEpisode recorded.
[2025-02-22 07:04] VITALS: BP 136/89; PULSE 98; RESP 18; TEMP 36.1; O2SAT 98; BMI 34.3
[2025-02-22] MEDS: LACTATED RINGERS 1,000 ML 150 ML IV CONT (07:11)
--- NOTE | 2025-02-22 08:10 | P.PNAN_ITS ---
Anes - Initial Pre Proc Eval Procedure: Operation Date: 02/22/25 08:30 Proposed Procedures p Screening Colonoscopy - Chandu Cortes DO Date/Time: 02/22/25 08:10 Surgeon: Chandu Cortes DO Pre Op Diagnosis: Neoplasm screening Patient Data Age: 64 Gender: F Height: 1.63 m Weight: 90.8 kg Last Vital Signs Temp 97 F L 02/22/25 07:04 Pulse 98 02/22/25 07:04 Resp 18 02/22/25 07:04 BP 136/89 02/22/25 07:04 Pulse Ox 98 02/22/25 07:04 O2 Del Method Room Air 02/22/25 07:04 Allergies Allergy/AdvReac Type Severity Reaction Status Date / Time No Known Allergies Allergy Verified 02/22/25 07:03 Home Medications ?Medication ?Instructions ?Recorded ?Confirmed ?Type duloxetine 20 mg capsule,delayed 40 mg PO DAILY 02/22/25 History release hydrochlorothiazide 25 mg tablet 25 mg PO DAILY 02/22/25 History losartan 100 mg tablet 100 mg PO DAILY 06/29/2409/11 History omeprazole 40 mg capsule,delayed 40 mg PO DAILY 02/22/25 History release rosuvastatin 40 mg tablet 40 mg PO DAILY 06/29/2409/11 History hydrocodone 7.5 mg-acetaminophen 1 tablet PO Q4H PRN p ain #40 tabs 11/21/24 02/13/25 Rx 325 mg tablet Patient hx anesthesia problems: none Family hx anesthesia problems: none Results Review: All pre-operative results and documents have been reviewed as part of the pre- operative evaluation. [facility], [facility] Past Medical History Medical History High cholesterol Depression Anxiety Hypertension Surgical History Surgical History History of tonsillectomy and adenoidectomy History of History of surgery on left wrist History of right knee joint replacement Family History Family History Father Cerebrovascular accident Social History Social History Smoking status: Never smoker Alcohol intake: current Drinks per week: 2 Alcohol use details: occ Substance use: current Substance use type: painkillers and prescription drug Do You Feel Safe in your Home?: Yes Lack of Transportation: No Lack of Food: Never True Current Housing: I Have Housing Concerned About Future Housing: No Difficulty Paying Gas/Electric Bills: Decline to Answer Difficulty Paying for Meds: No Currently Unemployed: Decline to Answer Education: High School Diploma/GED Difficulty w/ Childcare or Family Care: No Living arrangements: with family Spiritual care concerns: No Anes - Eval Final PreProcedure Day of Procedure 02/22/25 08:10 Patient weight: obese Lungs: normal air movement Airway: Mallampati scale class III Neurological: alert and oriented Last oral intake: >/= 8 hours ASA classification: III Emergent: no Anesthetic plan: proceed Anesthesia type and monitoring: general GIVS and standard monitoring Results Review: All pre-operative results and documents have been reviewed as part of the pre- operative evaluation. HTN, hyperlipidemia, opiods for 3 months due to shoulder injury, no known NADEGE but sleep study has been suggested. Informed Consent: The patient's anesthetic plan and its attendant risks and benefits were discussed with the patient/family/POA. Questions were solicited and answers provided to the satisfaction of the patient/family/POA.
--- NOTE | 2025-02-22 08:31 | PM.IMHP ---
H&P: HPI History of Present Illness Date/Time: 02/22/25 08:31 Chief Complaint: Screening for colorectal cancer Narrative: This is a 64-year-old woman who presents for colonoscopy. She states her last colonoscopy was 5 years ago and was normal. She denies any family history colon cancer. She denies any hematochezia or melena. Review of Systems Review of Systems: All systems reviewed & are unremarkable except as noted in HPI and below Constitutional: Constitutional: Denies chills, Denies fever(s), Denies headache(s) and Denies weight loss Eyes: Eyes: Denies change in vision ENT: Denies dizziness, Denies headache(s), Denies neck mass and Denies throat swelling Cardiovascular: Cardiovascular: Denies chest pain, Denies lightheadedness and Denies dyspnea Respiratory: Respiratory: Denies cough, Denies dyspnea and Denies wheezing Gastrointestinal: Gastrointestinal: Denies abdominal pain, Denies change in bowel habits, Denies nausea and Denies vomiting Genitourinary: Genitourinary: Denies hematuria and Denies dysuria Musculoskeletal: Musculoskeletal: Reports as per HPI Integumentary/Breasts: Skin/Breast: Reports as per HPI Neurologic: Denies dizziness and Denies headache(s) Allergic/Immunologic: Allergic/Immunologic: Denies throat swelling and Denies wheezing PMFSH Past Medical History Medical History High cholesterol Depression Anxiety Hypertension Surgical History Surgical History History of tonsillectomy and adenoidectomy History of History of surgery on left wrist History of right knee joint replacement Family History Family History Father Cerebrovascular accident Social History Social History Smoking status: Never smoker Alcohol intake: current Drinks per week: 2 Alcohol use details: occ Substance use: current Substance use type: painkillers and prescription drug Do You Feel Safe in your Home?: Yes Lack of Transportation: No Lack of Food: Never True Current Housing: I Have Housing Concerned About Future Housing: No Difficulty Paying Gas/Electric Bills: Decline to Answer Difficulty Paying for Meds: No Currently Unemployed: Decline to Answer Education: High School Diploma/GED Difficulty w/ Childcare or Family Care: No Living arrangements: with family Spiritual care concerns: No Meds Home Medications and Allergies Home Medications ?Medication ?Instructions ?Recorded ?Confirmed ?Type duloxetine 20 mg capsule,delayed 40 mg PO DAILY 06/29/24 02/22/25 History release hydrochlorothiazide 25 mg tablet 25 mg PO DAILY 06/29/24 02/22/25 History losartan 100 mg tablet 100 mg PO DAILY 06/29/24 02/22/25 History omeprazole 40 mg capsule,delayed 40 mg PO DAILY 06/29/24 02/22/25 History release rosuvastatin 40 mg tablet 40 mg PO DAILY 06/29/24 02/22/25 History hydrocodone 7.5 mg-acetaminophen 1 tablet PO Q4H PRN pain #40 tabs 11/21/24 02/13/25 Rx 325 mg tablet Allergies Allergy/AdvReac Type Severity Reaction Status Date / Time No Known Allergies Allergy Verified 02/22/25 07:03 Vital Signs Vital Signs - 24 hr 02/22/25 07:04 Temperature 97 F L Pulse Rate 98 Respiratory Rate 18 Blood Pressure 136/89 Pulse Oximetry 98 Oxygen Delivery Room Air Exam Const: General: no acute distress and alert Orientation/consciousness: patient oriented x3 HENMT: Head: normocephalic and atraumatic Ears: hearing grossly normal bilaterally Face/Nose/Sinus: Normal nares present Mouth: Yes Normal oral and palatal mucosa present Eyes: Periorbital: periorbital findings normal Sclera: sclerae normal EOM: EOMs intact bilaterally Neck: Neck: normal visual inspection, no lymphadenopathy and trachea midline Chest: Chest palpation & inspection: normal inspection of the chest Resp: Effort & Inspection: normal respiratory effort Auscultation: clear to auscultation bilaterally Cardio: Jugular venous distension: no JVD Rate: regular rate Rhythm: regular rhythm Heart sounds: S1 normal heart sound present and S2 normal heart sound present Peripheral pulses: Peripheral pulses 2+ throughout GI: Inspection: normal to inspection GI Palp: Yes Soft to palpation, No Tenderness to palpation present (GI), No Guarding due to palpation present (GI) and No Rebound tenderness present Percussion: Yes normal to percussion Auscultation: normal bowel sounds : General: Yes no CVA tenderness Back/Spine/Pelvis: Back: no CVA tenderness Neuro: General: patient oriented x3, no focal motor deficits and CN's II-XI intact bilaterally Cognition (Neuro): normal cognition Speech: normal speech Motor exam (neuro): 5/5 motor strength present throughout Extrem: General: capillary refill normal and no clubbing, cyanosis or edema Assessment and Plan Assessment and plan (1) Screening for colorectal cancer: Code(s): Z12.11 - Encounter for screening for malignant neoplasm of colon; Z12.12 - Encounter for screening for malignant neoplasm of rectum Status: Acute Assessment and Plan: I have recommended colonoscopy. I have discussed the procedure, risks, benefits, and alternatives. Questions were answered. Patient is agreeable to proceed.
--- NOTE | 2025-02-22 08:56 | S_PTH ---
PATIENT: Irish Lund I LOC: [facility] Jimenez#:[id number] AGE/SX: 64/F ROOM: RE02/22/[address]: Chandu Cortes DO : 1960 BED: DIS: 02/22/2025 SPEC #: [id number] RECD: 02/22/25 11:20 STATUS: MIREYA RENatalie #: [id number] ELIZABETH: 02/22/25 08:[address]: Chandu Cortes DEPT: [facility] Surgical RECD BY: Ariana Jimenez ENTERED: 02/22/25 11:20 SP TYPE: Surgical OTHR DR: Albin Suero, Tissues: A - Colon Polypectomy Procedures: Hematoxylin and Eosin Stain Gross and Microscopic Level 4
[2025-02-22 09:01] VITALS: BP 136/70; PULSE 86; RESP 18; O2SAT 96
[2025-02-22 09:11] VITALS: BP 114/70; PULSE 84; RESP 18; O2SAT 97
[2025-02-22 09:21] VITALS: BP 137/80; PULSE 86; RESP 18; O2SAT 99
== END 2025-02-22 09:30 | disposition home or self-care (01) ==
PROVIDERS: PCP Internal Medicine; Visit Provider Surgery
PROC: 0DJD8ZZ Inspection of Lower Intestinal Tract, Via Natural or Artificial Opening Endoscopic (ICD-10-PCS; CPT 45378; principal; 2025-02-22 08:30)
DX: Z12.11 Encounter for screening for malignant neoplasm of colon (principal); K63.5 Polyp of colon; I10 Essential (primary) hypertension; E78.00 Pure hypercholesterolemia, unspecified; F32.A Depression, unspecified; F41.9 Anxiety disorder, unspecified; E66.9 Obesity, unspecified; Z68.34 Body mass index [BMI] 34.0-34.9, adult; Z79.891 Long term (current) use of opiate analgesic; Z98.890 Other specified postprocedural states
CPT/HCPCS: 45380; 88305; J2704; J7120